=== PATIENT | female | born 1995 | race Caucasian/White ===

== ENCOUNTER → 2017-04-10 | Outpatient (CLI) | payer BC, SELFPAY | PROVIDERS: Visit Provider Nurse Practitioner Obstetrics & Gynecology | DX: Z34.00 Encounter for supervision of normal first pregnancy, unspecified trimester (principal) | CPT/HCPCS: 36415; 84702 ==

== ENCOUNTER → 2017-04-18 | Outpatient (CLI) | payer BC, SELFPAY | PROVIDERS: Visit Provider Nurse Practitioner Obstetrics & Gynecology | DX: O26.841 Uterine size-date discrepancy, first trimester (principal) | CPT/HCPCS: 76817 ==

== ENCOUNTER → 2017-05-10 15:49 | Outpatient (CLI) | payer OTHER, SELFPAY ==
[2017-05-10 16:28] LABS: Basophils % 0.3 % (0.1-2.0); Eosinophils # 0.1 K/mm3 (0.0-0.4); Eosinophils % 1.1 % (0.1-12.0); Hematocrit 38.8 % (37.0-47.0); Lymphocytes # 1.6 K/mm3 (0.7-4.5); Lymphocytes % 19.5 K/mm3 (10-50); Mean Corpuscular HGB Conc 33.4 g/dL (31.8-35.4); Mean Corpuscular Hemoglobin 29.8 pg (27.0-31.2); Mean Corpuscular Volume 89.3 fl (81-99); Mean Platelet Volume 6.6 fl (7.4-10.4); Monocytes # 0.6 K/mm3 (0.1-1.0); Neutrophils # 5.8 K/mm3 (1.8-7.8); Neutrophils % 72.1 % (37.0-80.0); Platelet Count 274 K/mm3 (142-424); Red Blood Count 4.35 M/mm3 (4.20-5.40)
[2017-05-12 17:02] LABS: Hepatitis B Surface Antigen Negative (Negative); Hepatitis C Antibody <0.1 s/co ratio (0.0-0.9); Rapid Plasma Reagin Ab Titer Non Reactive (NonRea<1:1)
== END ==
PROVIDERS: Family Provider Family Medicine; PCP Family Medicine; Visit Provider Nurse Practitioner Obstetrics & Gynecology
DX: Z34.90 Encounter for supervision of normal pregnancy, unspecified, unspecified trimester (principal)
CPT/HCPCS: 36415; 85025; 86592; 86762; 86850; 87340; 87380

== ENCOUNTER → 2017-06-13 10:10 | Outpatient (CLI) | payer OTHER, SELFPAY ==
[2017-06-20 02:07] LABS: AFP Value 30.5 ng/mL (.); DIA MoM 0.72 (.); DIA Value 127.04 pg/mL (.); DSR (Second Trimester) 1 IN 1774 (.); Gest. Age on Collection Date 15.6 WEEKS (.); Insulin Dep Diabetes No (.); Maternal Age At EDD 24.8 YEARS (.); OSBR Risk 1 IN 10000 (.); Results Report (.); hCG MoM 1.26 (.); hCG Value 52262 mIU/mL (.); uE3 MoM 0.57 (.)
[2017-06-21 06:36] LABS: Gestat. Age Based On EDD (.)
== END ==
PROVIDERS: Family Provider Family Medicine; PCP Family Medicine; Visit Provider Nurse Practitioner Obstetrics & Gynecology
DX: Z34.90 Encounter for supervision of normal pregnancy, unspecified, unspecified trimester (principal)
CPT/HCPCS: 36415; 82106

== ENCOUNTER → 2017-07-17 12:57 | Outpatient (CLI) | payer OTHER, SELFPAY ==
--- NOTE | 2017-07-17 12:59 | US_ITS ---
US OB /maternal detail: INDICATION: ITS.REASON: US OB Complete ORDERING PHYSICIAN: Bryan Do MD PATIENT AGE: 22 years TECHNIQUE: ultrasound transabdominal scanning. COMPARISON: No previous relevant studies. FINDINGS: Single viable intrauterine gestation. cephalic position. Placenta: posterior placenta grade . There is average amount fluid. The cervix appears satisfactory. Closed and measuring 3 cm in length. Complete survey performed and was unremarkable on the submitted images as in PACS. No discrete anomalies identified on survey imaging by technologist. Active fetus. Three-vessel cord with satisfactory umbilical cord insertion. 4- chamber heart noted. Survey of brain & ventricles. Face and neck survey unremarkable. Diaphragm and chest views unremarkable. Abdomen: Both kidneys noted and unremarkable. Stomach noted and satisfactory. Spine: Survey of the spine satisfactory with no anomalies identified nor imaged. Both arms and legs noted. Amniotic Fluid: Adequate. Maternal adnexa: No significant findings. Measurements: Average ultrasound age 20w6d. Gestational Age 20w3d. Estimated due date by ultrasound age 0711/28/2017. Estimated weight 373 grams. This is 62nd percentile based on last menstrual period BPD = 21w2d OFD = 21w5d HC = 20w5d AC = 21w0d FL = 20w3d Heart Rate = 152 Cerebellum = 21w5d Humerus = 20w6d HC/AC is 1.15 (1.09-1.26). CI is 77% (70-86%). FL/BPD is 66%. FL/AC is 21%. IMPRESSION: Live IUP in cephalic presentation with an average ultrasound age of 20 weeks and 6 days and an estimated due date of 11/28/2017. No obvious anomalies. Please see above for detail
== END ==
PROVIDERS: Family Provider Family Medicine; PCP Family Medicine; Visit Provider Nurse Practitioner Obstetrics & Gynecology
DX: Z36.0 Encounter for antenatal screening for chromosomal anomalies (principal)
CPT/HCPCS: 76811

== ENCOUNTER → 2017-11-09 17:51 | Outpatient (REF) | payer OTHER, SELFPAY | LOC: LAB 17:51 | PROVIDERS: Visit Provider Nurse Practitioner Obstetrics & Gynecology | DX: Z34.90 Encounter for supervision of normal pregnancy, unspecified, unspecified trimester (principal) | CPT/HCPCS: 86403 ==

== ENCOUNTER 2017-11-28 18:36 | Inpatient (IN) ==
[2017-11-28 19:11] LABS: Microscopic, Urine URINE MICROSCOPIC (MICROSCOPIC)
[2017-11-28 19:14] LABS: Appearance,Urine CLEAR (Clear); Bilirubin,Urine Negative (Negative); Blood, Urine Negative (Negative); Color,Urine YELLOW (Yellow); Glucose,Urine (UA) Negative (Negative); Ketones,Urine Negative (Negative); Leukocyte Esterase,Urine Negative (Negative); Protein,Urine Negative (Negative); Specific Gravity, Urine 1.015 (1.005-1.030); Urobilinogen,Urine 0.2 EU/dl (0.2)
[2017-11-28 19:28] LABS: Amphetamine/Metha Screen,Urine Negative ng/mL (<1000); Barbiturates Screen,Urine Negative ng/mL (<200); Benzodiazepines Screen,Urine Negative ng/mL (<200); Cannabinoid Screen,Urine Negative ng/mL (<50); Cocaine Screen,Urine Negative ng/mL (<300); Methadone Screen,Urine Negative ng/mL (<300); Opiate Screen,Urine Negative ng/mL (<300); Phencyclidine Screen,Urine Negative ng/mL (<25)
[2017-11-28 19:30] LABS: Bacteria,Urine 1+ /lpf; RBC,Urine Occasional #/hpf (0-3); Squamous Epithelial Cell,Urine TNTC #/hpf (0-5)
[2017-11-28 21:51] LABS: Basophils % 0.2 % (0.1-2.0); Eosinophils # 0.1 K/mm3 (0.0-0.4); Eosinophils % 0.4 % (0.1-12.0); Hematocrit 36.5 % (37.0-47.0); Lymphocytes # 2.2 K/mm3 (0.7-4.5); Lymphocytes % 17.8 K/mm3 (10-50); Mean Corpuscular HGB Conc 32.9 g/dL (31.8-35.4); Mean Corpuscular Hemoglobin 27.5 pg (27.0-31.2); Mean Corpuscular Volume 83.5 fl (81-99); Mean Platelet Volume 7.4 fl (7.4-10.4); Monocytes # 0.7 K/mm3 (0.1-1.0); Monocytes % 5.9 % (1.7-9.3); Neutrophils # 9.2 K/mm3 (1.8-7.8); Neutrophils % 75.8 % (37.0-80.0); Platelet Count 266 K/mm3 (142-424); Red Blood Count 4.37 M/mm3 (4.20-5.40); Red Cell Distribution Width 13.5 % (11.5-17.5); White Blood Count 12.1 K/mm3 (4.8-10.8)
--- NOTE | 2017-11-29 08:10 | Progress Note ---
[facility] Anesthesia Checklist - Patient Identification Patient Identification: Arm Band - Structural Data Admitted From: Home Planned Operative Procedure/s: labor epidural Consent for Planned Operative Procedure(s) Verified: Yes Verified Documents: Surgical Consent, History and Physical - NPO Status Verified Time NPO: 00:00 - Additional verifications Anesthesia Reactions: No - Airway Assessment C-Spine Mobility Assessed: Yes TMJ Mobility Assessed: Yes Dentition: Good Dentition - Neurological Assessment Level of Consciousness: Awake, Alert - Anesthesia Plan Anesthesia Risk discussed: Yes Anesthesia Plan: Verified ASA Class: II Anesthesia Type: Epidural [facility] Anesthesia HX I have reviewed the patient's past medical history: Yes Medical History: Reports:: Anxiety Denies:: Depression, Diabetes Mellitus Type 1, Hyperlipidemia, Hypertension, MRSA Other Surgeries: No: Amputation: No Fractures: No *Family Hx:: No significant family history
--- NOTE | 2017-11-29 14:48 | History & Physical Report ---
OB - H&P: HPI Antepartum - History of Present Illness Chief complaint: contractions History of present illness: 22 yo G1 @ 39 6/7 presented last night (39 5/7) with active labor Cervix 2cm and admitted to L&D Spontaneous progress to 4cm by today but stalled at 4cm Pitocin augmentation begun today and AROM with clear fluid Cervix now 8/100/0 NST has been reassuring since admission Patient was uncomfortable after epidural placement, but second epidural placed by anesthesia and currently comfortable [facility] History I have reviewed the patient's past medical history: Yes Medical History: Reports:: Anxiety Denies:: Depression, Diabetes Mellitus Type 1, Hyperlipidemia, Hypertension, MRSA Other Surgeries: No: Amputation: No Fractures: No - *Social History Smoking Status: Smoker, status unknown Alcohol Intake: never Substance Use Type: denies use Occupational Status: employed Housing: house Household Members: spouse - Psychiatric History Pschychiatric History:: Reports:: Anxiety Denies:: Depression *Family Hx:: No significant family history Para: 0 Review of Systems - Review of Systems Review of systems:: pertinent systems reviewed and negative unless documented below - Constitutional Denies chills, Denies fever(s) - Eyes Denies blurry vision, Denies double vision - ENT Denies nosebleed, Denies headache(s) - *Cardiovascular Denies chest pain, Denies shortness of breath - *Respiratory Denies cough, Denies shortness of breath - *Gastrointestinal Denies abdominal pain, Denies nausea, Denies vomiting - *Genitourinary Denies abnormal vaginal bleeding (+ contractions), Denies painful urination - *Musculoskeletal Reports back pain - Integumentary/Breasts Denies rash - *Neurologic Denies headache(s), Denies tingling/numbness/burning sensations - Psychiatric Denies anxiety, Denies depression - Hematologic/Lymphatic Denies easy bleeding, Denies easy bruising Meds Home Medications Medication Instructions Recorded Confirmed Type lansoprazole 15 mg capsule,delayed 15 mg PO DAILY cap 11/27/17 11/28/17 History release Vit Calc,Iron,Folic [Kpn] 1 tab PO DAILY 11/28/17 11/29/17 History Allergies Allergy/AdvReac Type Severity Reaction Status Date / Time No Known Allergies Allergy Verified 11/27/17 15:09 OB - H&P: Exam - Physical Exam Vital signs: Temp Pulse Resp BP Pulse Ox 98.0 F 84 18 132/80 98 11/28/17 19:45 11/28/17 19:45 11/28/17 19:45 11/28/17 19:45 11/28/17 19:45 - Constitutional no acute distress - Routine HEENT Exam Eye: Absent: conjunctival icterus, scleral injection ENT: Present: mucous membranes moist - Routine Respiratory Exam Absent: accessory muscle use, respiratory distress - Routine Cardiovascular Exam Present: RRR. Absent: tachycardia - Routine Abdominal Exam Present: soft. Absent: tenderness, distended - Routine Exam Perineal: Absent: erythema, induration, tenderness - Routine Extremities Exam Absent: edema - Routine Skin Exam Absent: rash - Routine Neurological Exam Present: alert, oriented X3. Absent: altered mental status - Routine Psychiatric Exam Present: normal affect. Absent: depressed, anxious - Detailed Labor and Delivery Exam Dilation (cm): 8 Effacement (%): 80 Cervix position: mid station: 0 Consistency: soft Membranes: ruptured (AROM clear fluid) Amniotic fluid: clear monitor accelerations: Present monitor decelerations: None superintendent container terminal variability: Moderate (11-25) Contraction frequency (min): 3 Tachysystole: No OB - Results - Labs Labs: Short CBC 11/28/17 Range/Units 20:50 WBC 12.1 H (4.8-10.8) K/mm3 Hgb 12.0 L (12.2-16.2) g/dL Hct 36.5 L (37.0-47.0) % Plt Count 266 (142-424) K/mm3 Urine 11/28/17 Range/Units 19:00 Urine Color Yellow (Yellow) Urine Appearance Clear (Clear) Urine pH 7.0 (5.0-8.5) Ur Specific [place] 1.015 (1.005-1.030) Urine Protein Negative (Negative) Urine Glucose (UA) Negative (Negative) OB - A/P Antepartum (1) with 39 completed weeks gestation Current visit: Yes Status: Acute (2) Active labor at term Current visit: Yes Status: Acute (3) Anemia affecting in third trimester Current visit: Yes Status: Acute - Additional Plan Additional Information:: Admitted to L&D with active labor on 11/28/17 Stalled at 4cm and pitocin augmentation initiated Progressing normally now Comfortable with epidural Continuous monitoring Anticipate Repeat H/H
--- NOTE | 2017-11-29 17:09 | Progress Note ---
Delivery date: 11/29/17 Procedure: Spontaneous vaginal delivery of liveborn male infant over intact perineum. No nuchal cord or shoulder dystocia noted at delivery. delivered in controlled fashion without complication and placed skin-to- skin immediately while labor nurses assessed infant status. Placenta spontaneously delivered and intact. No labial or cervical lacerations 2nd degree perineal laceration repaired with 2-0 vicryl in layers. EBL: 400cc All counts correct Dispo: Mom/baby stable to recovery. Delivery augmentation: pitocin Delivery monitor: external FHT, external uterine Route of delivery: Episiotomy description: None Laceration description: Perineal - 2nd Degree Delivery repair: vicryl Estimated blood loss (mL): 400 Anesthesia type: Epidural Disposition: floor
[2017-11-30 09:24] LABS: Hematocrit 28.8 % (37.0-47.0); Hemoglobin 9.3 g/dL (12.2-16.2)
--- NOTE | 2017-11-30 23:51 | Progress Note ---
Internal Medicine - PN: Subj *Date: 11/30/17 *Time: 11:49 Interval history: PPD #1 No complaints Tolerating po, ambulating and voiding without difficulty Lochia less than menses Exam Vital signs and Labs for Last 24 Hours: Temp Pulse Resp BP Pulse Ox 98.0 F 84 18 132/80 98 11/28/17 19:45 11/28/17 19:45 11/28/17 19:45 11/28/17 19:45 11/28/17 19:45 Laboratory Results - last 24 hr 11/30/17 09:15: Hgb 9.3 L, Hct 28.8 L I & O for Last 24 hours: Intake & Output 11/28/17 11/29/17 11/30/17 12/01/17 11:59 11:59 11:59 11:59 Weight 201 lb - Constitutional no acute distress - *Routine Respiratory Exam Absent: respiratory distress - *Routine Cardiovascular Exam Absent: tachycardia - *Routine Abdominal Exam Present: soft. Absent: tenderness, distended - *Routine Extremities Exam Absent: edema - *Routine Skin Exam Absent: rash - *Routine Neurological Exam Present: alert, oriented X3 - Routine Psychiatric Exam Absent: depressed, anxious Assessment and Plan (1) with 39 completed weeks gestation Current visit: Yes Status: Acute Category: Medical Code(s): Z3A.39 - 39 weeks gestation of (2) Active labor at term Current visit: Yes Status: Acute Category: Medical (3) Anemia affecting in third trimester Current visit: Yes Status: Acute Category: Medical Code(s): O99.013 - Anemia complicating , third trimester (4) Normal vaginal delivery Current visit: Yes Status: Acute Category: Medical Code(s): O80 - Encounter for full-term uncomplicated delivery - Assessment and plan all Dx Assessment and Plan for all problems:: Routine care Anticipate
--- NOTE | 2017-12-01 07:51 | Discharge Summary ---
DS: Providers Date of admission: 11/28/17 20:04 Primary care physician: Davy Sorensen MD Attending physician on admission: Jacque Reed Attending physician on discharge: Jacque Reed Anticipated date of discharge: 12/01/17 DS: Diagnosis - Discharge Diagnosis (1) with 39 completed weeks gestation Status: Acute (2) Active labor at term Status: Acute (3) Anemia affecting in third trimester Status: Acute (4) Normal vaginal delivery Status: Acute DS: Medications - Discharge Medications Prescriptions: No Action lansoprazole 15 mg capsule,delayed release 15 mg PO DAILY cap Vit Calc,Iron,Folic [Kpn] 1 tab PO DAILY OB - DS: Summary Hospital course: Ms. Eckert is a 22 year old admitted with SROM with normal course Ambulating, tolerating regular diet and voiding without difficulty Discharged home on PPD #2 - Peripartum Data Delivery method: spontaneous vaginal delivery - Status at Discharge Functional status at discharge: independent ambulation Overall status at discharge: patient is progressing back to baseline - Time Spent with Patient Total time spent providing and/or coordinating discharge services: Less than 30 minutes Exam Vital signs and Labs for Last 24 Hours: Temp Pulse Resp BP Pulse Ox 98.0 F 84 18 132/80 98 11/28/17 19:45 11/28/17 19:45 11/28/17 19:45 11/28/17 19:45 11/28/17 19:45 Laboratory Results - last 24 hr 11/30/17 09:15: Hgb 9.3 L, Hct 28.8 L I & O for Last 24 hours: Intake & Output 11/28/17 11/29/17 11/30/17 12/01/17 11:59 11:59 11:59 11:59 Weight 201 lb - Constitutional no acute distress - *Routine Respiratory Exam Absent: respiratory distress - *Routine Cardiovascular Exam Absent: tachycardia - *Routine Abdominal Exam Present: soft. Absent: tenderness - *Routine Skin Exam Absent: rash - *Routine Neurological Exam Present: alert, oriented X3 - Routine Psychiatric Exam Present: normal affect. Absent: depressed, anxious Results Labs on day of discharge: Labs from last 24 hours 11/30/17 09:15 Hgb 9.3 L Hct 28.8 L Discharge Plan - Patient Discharge Instructions ACTIVITY: Continue current activity DIET: regular diet - Follow up Plan Disposition: Home, Self-[facility] Medications: Home Medications Medication Instructions Recorded Confirmed Type lansoprazole 15 mg capsule,delayed 15 mg PO DAILY cap 11/27/17 11/28/17 History release Vit Calc,Iron,Folic [Kpn] 1 tab PO DAILY 11/28/17 11/29/17 History Prescriptions/Medication Reconciliation: New Ibuprofen [Motrin 400mg tablet] 800 mg PO Q6HP PRN tablet PRN Reason: Mild To Moderate Pain Continue lansoprazole 15 mg capsule,delayed release 15 mg PO DAILY cap Vit Calc,Iron,Folic [Kpn] 1 tab PO DAILY
== END 2017-12-01 20:00 | disposition home or self-care (01) ==
LOC: OBOUT 18:36 → OB 18:39
PROVIDERS: ADMIT Obstetrics & Gynecology; ATTEND Nurse Practitioner Obstetrics & Gynecology

== ENCOUNTER 2020-12-16 18:06 | Emergency (ER) | payer BC, SELFPAY ==
[2020-12-16 20:01] VITALS: BP 127/86; PULSE 86; RESP 18; TEMP 36.6; O2SAT 100; BMI 20.3
--- NOTE | 2020-12-16 20:11 | HMH.EDUTC ---
[facility] [place] Clinical Impression: Left flank pain UTI (urinary tract infection) Qualifiers: Urinary tract infection type: site unspecified Hematuria presence: with hematuria Qualified Code(s): N39.0 - Urinary tract infection, site not specified Low back pain Qualifiers: Chronicity: acute Back pain laterality: right Sciatica presence: without sciatica Qualified Code(s): M54.5 - Low back pain Disposition: Home, Self-Care Condition on Discharge: Good Instructions: Urinary Tract Infection, DI for Urinary Tract Infection (UTI) Additional Instructions: Drink plenty of fluids. Take tylenol or ibuprofen for pain or fever. Take the medications as directed. Follow up with your regular doctor. GO TO THE ER FOR ANY WORSENING SYMPTOMS The pyridium will make your urine turn orange, this is an expected side effect. It will stain your clothes if it comes into contact with them. Prescriptions: Ondansetron [Zofran 4mg ODT] 4 mg PO Q8HP PRN #12 tab.rapdis PRN Reason: Nausea Transmission Status: Received by [facility] Sulfamethoxazole/Trimethoprim [Bactrim DS tablet] 1 each PO BID 7 Days #14 tab Transmission Status: Received by [facility] Phenazopyridine HCl [Pyridium 200mg Tablet] 200 pow PO TID #6 tab Transmission Status: Received by [facility] Referrals: Isai Reilly MD [Primary Care Provider] - Time of Disposition: 20:53 Medical Decision Making - Medical Records Medical records reviewed: No: I reviewed the patient's medical records. - Ney Inquiry Pt receiving controlled substance: No Vital Signs: 12/16/20 20:01 12/16/20 20:55 Temperature 97.9 F 98.3 F Temperature Source Oral Pulse Rate 89 Pulse Rate [Left Radial] 86 Respiratory Rate 18 18 Blood Pressure 119/91 H Blood Pressure [Left Arm] 127/86 Blood Pressure Mean [Left Arm] 99 Blood Pressure Source [Left Arm] Automatic Cuff Blood Pressure Position [Left Arm] Sitting 02 Sat by Pulse Oximetry 100 Oxygen Delivery Method Room Air - Lab Data Lab results reviewed: Yes: I reviewed the patient's lab results. Lab Results 12/16/20 20:03: Urine Color Yellow, Urine Appearance Cloudy, Urine pH 6.0, Ur Specific [place] 1.025, Urine Protein Trace, Urine Glucose (UA) Negative, Urine Ketones Small, Urine Blood 3+, Urine Nitrate Positive A, Urine Bilirubin Negative, Urine Urobilinogen 0.2, Ur Leukocyte Esterase 2+ A Orders (Tests/Meds): ED MEDICATIONS Discontinued Medications Generic Name Dose Route Start Last Admin Trade Name Dinorah PRN Reason Stop Dose Admin Ceftriaxone Sodium 1 gm 12/16/20 20:30 12/16/20 20:54 Ceftriaxone 1gm Vial IM 12/16/20 20:31 1 gm ONCE ONE Administration Lidocaine HCl 0 ml 12/16/20 20:30 12/16/20 20:54 Lidocaine 1% 5ml Pf Vial IM 12/16/20 20:31 2.5 ml ONCE ONE Administration [facility] [place] - General Stated complaint: possible uti Time Seen by Provider: 12/16/20 20:11 Mode of Arrival: Ambulatory Source of Information: Patient Limitations: No Limitations Description of Symptoms (Recalled from Triage Doc. by RN): C/O possible UTI. Pain in back on left side below ribs and in groin HEENT Symptoms (Recalled from RN notes): No Resp Symptoms (Recalled from RN notes): No Skin Symptoms (Recalled from RN notes): No MS Symptoms (Recalled from RN notes): No Functional Status (Recalled from RN notes): n/a - History of Present Illness Provider Complaint: She reports that she has had 2 days of low back pain that radiates around to her left flank. She denies any fever/chills. She does have a history of getting UTI's. She also has a history of kidney stones, but it has been around 8 years since she has had one of those. - Related Data Home Medications Medication Instructions Recorded Confirmed etonogestrel 0.12 mg-ethinyl 1 vag ring VAGINAL Q4W 04/20/20 04/20/20 estradiol 0.015 mg/24 hr vaginal ring Previous Rx's Medicati
[2020-12-16 20:39] LABS: Apearance,Urine Cloudy (Clear); Color,Urine Yellow (Yellow); Protein,Urine Trace (Negative); Specific Gravity, Urine 1.025 (1.005-1.030)
[2020-12-16 20:40] LABS: Bilirubin,Urine Negative (Negative); Blood, Urine 3+ (Negative); Glucose,Urine (UA) Negative (Negative); Ketones,Urine SMALL (Negative); UTC Leukocyte Esterase,Urine 2+ (Negative); UTC Nitrate,Urine Positive (Negative); Urobilinogen,Urine 0.2 EU/dl (0.2)
[2020-12-16 20:55] VITALS: BP 119/91; PULSE 89; RESP 18; TEMP 36.8
== END 2020-12-16 20:58 | disposition home or self-care (01) ==
PROVIDERS: Emergency Provider Nurse Practitioner Family; PCP Internal Medicine Adolescent Medicine
DX: N30.00 Acute cystitis without hematuria (principal); Z87.442 Personal history of urinary calculi; F41.8 Other specified anxiety disorders
CPT/HCPCS: 81003; 96372; 99203; G0463

== ENCOUNTER 2020-12-17 17:37 | Emergency (ER) | payer BC, SELFPAY ==
[2020-12-17 17:38] VITALS: BP 137/94; PULSE 119; RESP 17; TEMP 36.9; O2SAT 97; BMI 20.3
--- NOTE | 2020-12-17 17:55 | CT_ITS ---
PROCEDURE INFORMATION: Exam: CT Abdomen And Pelvis Without Contrast Exam date and time: 12/17/2020 5:55 PM Age: 25 years old Clinical indication: Abdominal pain; Patient HX: Left flank pain with nausea x3 days, HX kidney stones TECHNIQUE: Imaging protocol: Computed tomography of the abdomen and pelvis without contrast. Radiation optimization: All CT scans at this facility use at least one of these dose optimization techniques: automated exposure control; mA and/or kV adjustment per patient size (includes targeted exams where dose is matched to clinical indication); or iterative reconstruction. COMPARISON: OBFEMAT US OB /maternal detail 07/17/2017 1:04 PM FINDINGS: Liver: Within normal limits. Gallbladder and bile ducts: Within normal limits. Pancreas: Within normal limits. Spleen: Within normal limits. Adrenal glands: Within normal limits. Kidneys and ureters: Left ureteral stone (5 x 8 mm) in the distal left ureter with mild associated left hydroureteronephrosis. No significant perinephric fat stranding. Stomach and bowel: Within normal limits. Appendix: Appendix is normal. Intraperitoneal space: No free fluid. No pneumoperitoneum. Vasculature: Multiple phleboliths noted in the pelvis. Lymph nodes: No enlarged lymph nodes by CT criteria. Urinary bladder: Within normal limits. Reproductive: Right ovary contains a physiologic follicle. CT appearance of reproductive organs is otherwise unremarkable. 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 No acute osseous abnormality. Soft tissues: Unremarkable. IMPRESSION: 1. Distal left ureteral stone (5 x 8 mm) with mild associated hydroureteronephrosis. 2. 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 Findings can be associated with Klippel-Feil syndrome and/or various symptomatology. Please correlate with patient history.
--- NOTE | 2020-12-17 18:05 | HMH.EDGENADL ---
ED Disposition Clinical Impression: Left ureteral calculus Disposition: Home, Self-Care Condition on Discharge: Good Additional Instructions: Percocet as needed for pain, take Benadryl 25 mg with each dose. Zofran as needed for nausea. Flomax as prescribed. Additional instructions for KIDNEY STONE (URETERAL CALCULUS): See Dr. Shen as soon as possible for further evaluation. Drink plenty of fluids. Strain your urine and save any stones you catch. Return immediately if you develop a fever or have uncontrollable vomiting or uncontrollable pain. Additional instructions for CONTROLLED SUBSTANCES: You have been prescribed a medication that is a controlled substance. Controlled substances include pain medications known as opiates and sedative nerve medications known as benzodiazepines. Tramadol, fioricet, and gabapentin are also controlled substances. Some common opiates include: Codeine (such as Tylenol #3) Hydrocodone (Vicodin, Lortab, Lorcet, [place]) Oxycodone (Percocet, Percodan, Oxycodone, Oxy IR) Some common benzodiazepines include: Diazepam (Valium) Lorazepam (Ativan) Alprazolam (Xanax) Clonazepam (Klonopin) Oxazepam (Serax) All of these controlled substances are highly addictive and frequently abused. Misuse can and frequently does lead to addiction as well as overdose and . Medication should be stored in a locked cabinet or other secure storage unit. Do not store the medication in a motor vehicle. Short term supplies, 3 days or less, are prescribed because of the highly addictive nature of the medication. Any of the controlled substance medication NOT taken should be disposed of properly and NOT SAVED. The recommended method of disposing of unused medications is: Place the medicines in a sealable plastic bag. If the medicine is a solid, crush it or add water to dissolve it. Add something undesirable (cat litter, coffee grounds, etc.) Dispose of sealed bag in household trash Do not flush or pour unused medicines down a sink or drain. Controlled substances should not be shared, given away or sold. Because of the addictive nature and frequent abuse, these medications are sometimes stolen. These medications should be kept in a safe place where they cannot be stolen. Do not keep them in your car or purse. Lost or stolen prescriptions for controlled substances WILL NOT BE REFILLED in this emergency department, regardless of whether a police report was filed. Prescriptions: Oxycodone HCl/Acetaminophen [Percocet 5/325mg tablet] 1 tab PO Q6HP PRN #10 tab PRN Reason: Moderate To Severe Pain Transmission Status: Sent to [facility] Tamsulosin HCl [Flomax 0.4mg capsule] 0.4 mg PO HS #10 cap.er.24h Transmission Status: Pending to [facility] Ondansetron [Zofran 4mg ODT] 4 mg PO TIDP PRN #10 tab.rapdis PRN Reason: Nausea And Vomiting Transmission Status: Pending to [facility] Referrals: Isai Reilly MD [Primary Care Provider] - Thiago Shen MD [Staff Physician] - - Critical Care Critical Care Time: No Attestation: On 12/17/20, the high probability of a clinically significant, sudden or life threatening deterioration of the following system(s) required my full and direct attention, intervention and personal management. The time I documented below is in addition to time spent performing reported procedures but includes the following listed in this critical care notation. Medical Decision Making - Medical Records Medical records reviewed: Yes: I reviewed the patient's medical records. MR Comment: Urgent treatment center visit from yesterday reviewed. - Ney Inquiry Pt receiving controlled substance: Yes Ney was queried for this patient: Yes Risks and benefits of using a controlled substance: were discussed with pt by me Vital Signs: 12/17/20 17:38 Temperature 98.5 F Temperature Source Oral Pulse Rate [Right] 119 H Respiratory Rate 1
[2020-12-17 18:21] LABS: Bilirubin,Urine Negative (Negative); Blood, Urine 2+ (Negative); Glucose,Urine (UA) Negative (Negative); Ketones,Urine TRACE (Negative); Leukocyte Esterase,Urine TRACE (Negative); Nitrate,Urine Negative (Negative); Protein,Urine Negative (Negative); Specific Gravity, Urine >= 1.030 (1.005-1.030); Urine Pregnancy, HCG Qual. Negative (Negative); Urobilinogen,Urine 0.2 EU/dl (0.2)
[2020-12-17 18:22] LABS: Appearance,Urine SL CLOUDY (Clear); Color,Urine YELLOW (Yellow); Microscopic, Urine URINE MICROSCOPIC (MICROSCOPIC)
[2020-12-17 18:30] LABS: Basophils % 0.5 % (0.1-2.0); Eosinophils % 0.6 % (0.1-12.0); Hematocrit 42.4 % (37.0-47.0); Hemoglobin 14.2 g/dL (12.2-16.2); Lymphocytes # 1.4 K/mm3 (0.7-4.5); Lymphocytes % 17.7 % (10-50); Mean Corpuscular HGB Conc 33.4 g/dL (31.8-35.4); Mean Corpuscular Hemoglobin 29.5 pg (27.0-31.2); Mean Corpuscular Volume 88.4 fl (81-99); Monocytes # 0.4 K/mm3 (0.1-1.0); Monocytes % 5.2 % (1.7-9.3); Neutrophils # 5.8 K/mm3 (1.8-7.8); Platelet Count 242 K/mm3 (142-424); Red Cell Distribution Width 12.3 % (11.5-17.5); White Blood Count 7.6 K/mm3 (4.8-10.8)
[2020-12-17 18:31] LABS: Chloride 102 mmol/L (98-107); Sodium 138 mmol/L (136-145)
[2020-12-17 18:32] LABS: Potassium 3.9 mmoL/L (3.5-5.1); Squamous Epithelial Cell,Urine Occasional #/hpf (0-5); Transitional Epi Cells,Urine OCC #/lpf (0-3); WBC,Urine Occasional #/hpf (0-3)
[2020-12-17 18:34] LABS: Alanine Aminotransferase 14 U/L (12-78); Alkaline Phosphatase 59 U/L (38-126); Aspartate Amino Transferase 20 U/L (14-36); Bilirubin,Total 0.4 mg/dl (0.2-1.3); Blood Urea Nitrogen 10 mg/dl (7-17); Creatinine Clearance Estimated 113 mL/min (50-200); Estimated Glomerular Filt Rate 86 ml/min (>60); GFR (African American) 104 ML/MIN (>60)
[2020-12-17 18:35] LABS: Albumin Level 4.4 g/dl (3.5-5.0); Albumin/Globulin Ratio 1.3 (1.1-1.8); Anion Gap 13.9 mEq/L (5-15); Calcium 9.2 mg/dl (8.4-10.2); Carbon Dioxide 26 mmol/L (22.0-30.0); Globulin 3.3 g/dL (1.3-3.2); Glucose 130 mg/dl (74-100); Total Protein,Serum 7.7 g/dl (6.3-8.2)
[2020-12-17 19:30] VITALS: BP 114/75; PULSE 81; O2SAT 99
[2020-12-17 20:00] VITALS: BP 124/78; PULSE 78; O2SAT 97
[2020-12-17 20:30] VITALS: BP 124/78; PULSE 98; RESP 16; TEMP 36.9; O2SAT 97
== END 2020-12-17 20:33 | disposition home or self-care (01) ==
PROVIDERS: Emergency Provider Emergency Medicine; PCP Internal Medicine Adolescent Medicine
DX: N20.1 Calculus of ureter (principal); F41.8 Other specified anxiety disorders; Z87.442 Personal history of urinary calculi
CPT/HCPCS: 74176; 80053; 81001; 81025; 85025; 96375; 99283; J2405

== ENCOUNTER 2020-12-18 13:44 | Day surgery (SDC) | payer BC, SELFPAY ==
[2020-12-18] VITALS (9 sets, daily range): BP systolic 105–140; BP diastolic 62–84; PULSE 67–96; RESP 16–18; TEMP 36.7–36.8; O2SAT 95–99; BMI 20.5
[2020-12-18 13:46] LABS: Coronavirus 19, PCR Not Detected (NotDetected); Influenza A, PCR Not Detected (NotDetected); Influenza B, PCR Not Detected (NotDetected)
--- NOTE | 2020-12-18 17:31 | XR_ITS ---
PROCEDURE: XR KUB CLINICAL INDICATION: STENT PLACEMENT IN OR COMPARISON: CT CT ABDOMEN PELVIS WO CON from 12/17/2020 FINDINGS: Fluoroscopy: 4 minutes seconds. 2 images submitted with C-arm show a left ureteral stent place. IMPRESSION: Status post stone extraction stent placement with C-arm assistance Dictated by: Trevon Ibarra MD 12/21/2020 05:42 Trevon Ibarra MD in OV 12/21/2020 05:42
--- NOTE | 2020-12-18 17:38 | P.PN_ITS ---
[facility] Anesthesia Checklist - Patient Identification Patient Identification: Arm Band, Verbal (Name & ) - Structural Data Admitted From: Home Planned Operative Procedure/s: cysto Consent for Planned Operative Procedure(s) Verified: Yes Verified Documents: History and Physical - NPO Status Verified Time NPO: 08:30 - Chart Verification Results Verified: CBC, BMP - Additional verifications Patient : No Anesthesia Reactions: No Hx Blood Transfusions: No Blood Transfusion Reaction: No Cephalosporin Allergy: No Previous Colonoscopy: No - Cardiovascular Assessment Heart Sounds: S1 & S2 Pulse Strength: Baseline Pulse Rhythm: Regular Peripheral Edema: No - Airway Assessment C-Spine Mobility Assessed: Yes TMJ Mobility Assessed: Yes Dentition: Good Dentition - Neurological Assessment Level of Consciousness: Awake, Alert, Appropriate Hx Seizures: No Numbness or tingling in extremities: No - Anesthesia Plan Anesthesia Risk discussed: Yes Anesthesia Plan: Verified ASA Class: II Anesthesia Type: General [facility] History I have reviewed the patient's past medical history: Yes Medical History: Reports:: Anxiety, Depression, Kidney Stones Denies:: Cancer, Diabetes Mellitus Type 1, Diabetes Mellitus Type 2, Hyperlipidemia, Hypertension, Internal Pacemaker, MRSA, Seizures *Have you ever received a pneumonia vaccine?: No *Have you received a flu vaccine this season?: No Other Medical History: Denies: Blood Transfusion Reaction Anesthesia experience/problems:: none Other Surgeries: Yes: No Previous Surgery. 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
--- NOTE | 2020-12-18 17:39 | HMH.ANESI ---
[facility] Anesthesia Record Part I Intake, IV Amount: 800 Estimated blood loss (mL): 0 Urine output (mL): 0 Blood Products used (#): none Blood Pressure: 115/62 SaO2: 99 Pulse Rate: 92 Respiratory Rate: 18 Temperature: 98.0 F Patient is:: Awake, Stable Stable to PACU at:: 14:34
--- NOTE | 2020-12-18 17:58 | HMH.OPNOTE ---
Date of procedure: 12/18/20 Pre-op Diagnosis:: Left ureteral stone with obstruction Post-op Diagnosis:: Impacted 8 x 5 mm left distal ureteral stone with obstruction Procedure performed:: Left ureteroscopy, laser lithotripsy, stone extraction and left stent placement Surgeon:: Thiago Shen MD [employer] CHIEF INSPECTOR:: Other (dalia) Anesthesia: LMA Estimated blood loss (mL): 0 Clinical Note:: 25-year-old white female with recent left renal colic noted to have an 8 x 5 mm stone in the distal ureter with moderate hydroureteronephrosis. Operative findings:: Patient with impacted 8 x 5 mm stone. We were able to fragment the stone into small pieces and remove the largest ones and stent placed. Operative note:: Patient taken to the operating room after informed consent was obtained. Was placed on the operating room table in the supine position and general anesthesia administered. Preoperative antibiotics and sequential compression devices were placed. She was then placed into the dorsal lithotomy position and prepped and draped in the standard surgical fashion. 22 F cystoscope passed into the urethra and the bladder examined in a systematic fashion. There is no abnormalities noted. The ureteral orifices in their normal anatomic position and clear efflux of urine was noted from each orifice. A 0.035 guidewire was passed into the left ureteral orifice and up to the level of the stone but the wire would not pass by the stone. The wire was removed and open-ended 5 Burkinan ureteral catheter was passed into the left ureteral orifice and up close to the stone in the sensor wire was replaced and still unable to pass the wire by the stone. I then tried a 0.035 zip wire without success and then a 0.035 angled zip wire and this was able to be passed by the stone and into the left renal pelvis under fluoroscopy. The 5 Burkinan ureteral catheter was still unable to be passed by the stone so the ureteral catheter was removed and the cystoscope was removed and our semirigid ureteroscope was passed into the left ureter but there was stenosis noted about the centimeter upwards so the ureteroscope was removed and the 5 x 14 mm UroMax balloon dilator was passed over the guidewire and the distal ureter dilated to 12 anna for 2 minutes. The balloon then deflated and removed. The semirigid ureteroscope was then repassed and it passed up to the level of the stone where there was noted to be an impaction there where it was lodged against the left lateral wall. A 200 nm laser fiber was passed through the ureteroscope and the stone was fragmented into smaller pieces. It came off of the wall and there was some raggedy edges noted there where it was impacted. The laser fiber was removed and our 2.4 Burkinan stone basket was passed through the scope and the larger fragments were removed. We then removed the ureteroscope and the cystoscope was replaced and backloaded over the wire and a 4.8 x 24 Burkinan stent was passed but it was too short so it was removed and a 4.8 x 26 Burkinan stent was placed with a good curl noted proximally and distally. The scope then removed after the bladder was drained. The string was left on for later removal. Urojet placed into the urethra. Patient tolerated procedure well no complications. Condition: stable Disposition: PACU Specimens:: Stone fragments were not sent Complications:: None
--- NOTE | 2020-12-18 18:14 | SUR.PHASEI ---
notified Dr Shen via phone at 0936 that the pt was nauseous and that the Tordol did not help with pain. Per Md order pt zofran 4mg IV x 1 and morphine 2 mg iv x 1. no further orders. pt meds administered with favorable results.
--- NOTE | 2020-12-18 20:08 | SUR.PHASEII ---
184 new orders received from Dr Shen via circulating RN e stephanie morphine 2 mg iv q1h prn pain give oxycodone 5mg po now
--- NOTE | 2020-12-20 11:09 | HMH.ANESII ---
[facility] Anesthesia Record Part II Discharge Time: 17:44 Destination: Surgical Day Care (OP Surgery) PACU nurse assessment reviewed?: Yes Patient Condition:: Good Anesthesia Complications:: None Swallowing reflex intact?: Yes Cyanosis?: No Blood Pressure: 120/63 Pulse Rate: 83 Temperature: 98.1 F Mental Status: Alert & Oriented Pain level:: 3 Nausea and/or vomitting:: None Intake, IV Amount: 50
[2020-12-20 11:10] VITALS: BP 120/63; PULSE 83; TEMP 36.7
== END 2020-12-18 20:00 | disposition home or self-care (01) ==
LOC: LAB 13:58 → SDC 14:00
PROVIDERS: PCP Internal Medicine Adolescent Medicine; Visit Provider Urology
PROC: (CPT 52352; principal; 2020-12-18 16:00)
DX: N13.2 Hydronephrosis with renal and ureteral calculous obstruction (principal); F41.9 Anxiety disorder, unspecified; F32.9 Major depressive disorder, single episode, unspecified; Z79.3 Long term (current) use of hormonal contraceptives
CPT/HCPCS: 52353; 52352; 74018; 76000; 96374; C1769; C2617; J2405; U0003

== ENCOUNTER 2020-12-19 20:12 | Emergency (ER) | payer BC, SELFPAY ==
[2020-12-19 20:30] VITALS: BP 135/67; PULSE 89; RESP 16; O2SAT 98
[2020-12-19 20:31] VITALS: BP 137/77; PULSE 104; RESP 16; TEMP 36.7; O2SAT 97; BMI 20.5
--- NOTE | 2020-12-19 20:31 | CT_ITS ---
PROCEDURE INFORMATION: Exam: CT Abdomen And Pelvis Without Contrast Exam date and time: 12/19/2020 8:31 PM Age: 25 years old Clinical indication: Abdominal pain; Localized; Left lower quadrant (llq); Prior surgery; Surgery date: Post-operative (0-2 days); Surgery type: Left ureteral stone extraction and stent placed yesterday; Patient HX: Pain left low quad and difficulty urinating post stone extraction yesterday; Additional info: Flank pain TECHNIQUE: Imaging protocol: Computed tomography of the abdomen and pelvis without contrast. Radiation optimization: All CT scans at this facility use at least one of these dose optimization techniques: automated exposure control; mA and/or kV adjustment per patient size (includes targeted exams where dose is matched to clinical indication); or iterative reconstruction. COMPARISON: CT ABDOMEN PELVIS WO CON 12/17/2020 6:56 PM FINDINGS: Lungs: Lung bases are clear. Liver: There is enlargement of the liver, measuring 17 cm. The liver is otherwise unremarkable. Gallbladder and bile ducts: Normal. No calcified stones. No ductal dilation. Pancreas: Normal. No ductal dilation. Spleen: Normal. No splenomegaly. Adrenal glands: Normal. No mass. Kidneys and ureters: Removal of the previously identified distal left ureteral stone. Placement of a left ureteral stent. There is a left ureteral stent with its coiled ends appropriately positioned in the left collecting system and bladder. Mild residual left hydroureteronephrosis. The right kidney is normal. The right ureter is normal. Stomach and bowel: No bowel obstruction or significant bowel wall thickening. There is excessive colonic stool content. Appendix: A normal appendix is identified. Intraperitoneal space: No left perinephric fluid collections or free fluid. Vasculature: Unremarkable. No abdominal aortic aneurysm. Lymph nodes: Unremarkable. No enlarged lymph nodes. Urinary bladder: The bladder is decompressed. There is a small amount of intraluminal bladder gas consistent with instrumentation. Reproductive: Stable physiologic follicle in the right ovary. No follow-up is recommended. The reproductive organs are otherwise unremarkable. Bones/joints: Congenital fusion of T10-T11. No acute skeletal abnormality or aggressive osseous lesion. Soft tissues: Unremarkable. IMPRESSION: Interval removal of the previously identified distal left ureteral stone with placement of a double-J stent which appears in place. No definitive complications are appreciated at this time. There is however mild residual left hydroureteronephrosis.
[2020-12-19 20:45] VITALS: BP 117/63; PULSE 87; RESP 16; O2SAT 98
[2020-12-19 20:52] LABS: Microscopic, Urine URINE MICROSCOPIC (MICROSCOPIC)
[2020-12-19 20:55] LABS: Basophils % 0.2 % (0.1-2.0); Eosinophils # 0.1 K/mm3 (0.0-0.4); Eosinophils % 0.7 % (0.1-12.0); Hematocrit 41.4 % (37.0-47.0); Hemoglobin 13.5 g/dL (12.2-16.2); Lymphocytes # 1.1 K/mm3 (0.7-4.5); Lymphocytes % 14.5 % (10-50); Mean Corpuscular HGB Conc 32.6 g/dL (31.8-35.4); Mean Corpuscular Hemoglobin 30.2 pg (27.0-31.2); Mean Corpuscular Volume 92.5 fl (81-99); Mean Platelet Volume 8.1 fl (7.4-10.4); Monocytes # 0.4 K/mm3 (0.1-1.0); Monocytes % 4.9 % (1.7-9.3); Neutrophils # 6.2 K/mm3 (1.8-7.8); Neutrophils % 79.7 % (37.0-80.0); Platelet Count 245 K/mm3 (142-424); Red Blood Count 4.47 M/mm3 (4.20-5.40); Red Cell Distribution Width 12.1 % (11.5-17.5); White Blood Count 7.8 K/mm3 (4.8-10.8)
[2020-12-19 20:56] LABS: Appearance,Urine CLEAR (Clear); Blood, Urine 3+ (Negative); Color,Urine YELLOW (Yellow); Glucose,Urine (UA) TRACE (Negative); Ketones,Urine TRACE (Negative); Leukocyte Esterase,Urine 2+ (Negative); Nitrate,Urine POSITIVE (Negative); PH,Urine 6.5 (5.0-8.5); Protein,Urine 3+ (Negative); Specific Gravity, Urine 1.025 (1.005-1.030)
--- NOTE | 2020-12-19 20:57 | HMH.EDGENADL ---
ED Disposition Clinical Impression: Renal colic on left side Disposition: Home, Self-Care Condition on Discharge: Good Additional Instructions: Continue medications for pain as directed. Follow-up with urologist as scheduled on Monday. Plenty of fluids on daily basis. Prescriptions: Ketorolac Tromethamine [Toradol 10mg tablet] 10 mg PO Q6HP PRN 4 Days #12 tab MDD 40mg/day PRN Reason: Mild Pain,Fever,Headache Transmission Status: Received by [facility] #[id number] Tizanidine HCl [Zanaflex 4mg tab] 4 mg PO TID PRN 4 Days #12 tab PRN Reason: Breakthru Severe Pain Transmission Status: Received by [facility] #[id number] Referrals: Isai Reilly MD [Primary Care Provider] - - Critical Care Critical Care Time: No Attestation: On 12/19/20, the high probability of a clinically significant, sudden or life threatening deterioration of the following system(s) required my full and direct attention, intervention and personal management. The time I documented below is in addition to time spent performing reported procedures but includes the following listed in this critical care notation. Medical Decision Making - Medical Records MR Comment: Patient received 1 mg of Dilaudid for pain control. CT scan of the abdomen pelvis stone protocol did not show any complication related to the stent or any stones. Patient has already prescriptions of hydrocodone and oxycodone.. - Ney Inquiry Pt receiving controlled substance: No Ney was queried for this patient: No Reason not queried -: Emergent pt cond-no time Vital Signs: 12/19/20 20:30 12/19/20 20:31 12/19/20 20:45 Temperature 98.1 F Temperature Source Oral Pulse Rate 89 87 Pulse Rate [Right Brachial] 104 H Respiratory Rate 16 16 16 Blood Pressure 135/67 117/63 Blood Pressure [Right Arm] 137/77 Blood Pressure Mean [Right Arm] 97 Blood Pressure Source Automatic Cuff Automatic Cuff Blood Pressure Source [Right Arm] Automatic Cuff Blood Pressure Position Sitting Sitting Blood Pressure Position [Right Arm] Sitting 02 Sat by Pulse Oximetry 98 97 98 Oxygen Delivery Method Room Air Room Air 12/19/20 21:40 12/19/20 22:19 Temperature 98.1 F Temperature Source Pulse Rate 77 72 Pulse Rate [Right Brachial] Respiratory Rate 16 14 Blood Pressure 100/52 L 118/62 Blood Pressure [Right Arm] Blood Pressure Mean [Right Arm] Blood Pressure Source Automatic Cuff Blood Pressure Source [Right Arm] Blood Pressure Position Sitting Blood Pressure Position [Right Arm] 02 Sat by Pulse Oximetry 99 Oxygen Delivery Method Room Air Room Air - Lab Data Lab Results 12/19/20 20:40: Urine Color Yellow, Urine Appearance Clear, Urine pH 6.5, Ur Specific [place] 1.025, Urine Protein 3+, Urine Glucose (UA) Trace, Urine Ketones Trace, Urine Blood 3+, Urine Nitrate Positive, Urine Bilirubin Negative, Urine Urobilinogen 4.0, Ur Leukocyte Esterase 2+ A, Urine RBC Tntc, Urine WBC Tntc, Ur Squamous Epith Cells None, Urine Bacteria 2+ 12/19/20 20:40: WBC 7.8, RBC 4.47, Hgb 13.5, Hct 41.4, MCV 92.5, MCH 30.2, MCHC 32.6, RDW 12.1, Plt Count 245, MPV 8.1, Neut % (Auto) 79.7, Lymph % (Auto) 14.5, [place] % (Auto) 4.9, Eos % (Auto) 0.7, Baso % (Auto) 0.2, Neut # (Auto) 6.2, Lymph # (Auto) 1.1, [place] # (Auto) 0.4, Eos # (Auto) 0.1, Baso # (Auto) 0.0 12/19/20 20:40: Sodium 141, Potassium 3.7, Chloride 105, Carbon Dioxide 27, Anion Gap 12.7, BUN 9, Creatinine 1.00 D, Estimated Creat Clear 91, Estimated GFR 67, Est GFR ( Amer) 80 D, Glucose 132 H, Calcium 8.6, Total Bilirubin 0.2, AST 19, ALT 13, Alkaline Phosphatase 54, Total Protein 7.1, Albumin 4.0, Globulin 3.1, Albumin/Globulin Ratio 1.3 Result diagrams: 12/19/20 20:40 12/19/20 20:40 Orders (Tests/Meds): ED MEDICATIONS Discontinued Medications Generic Name Dose Route Start Last Admin Trade Name Freq PRN Reason Stop Dose Admin Baclofen 10 mg 12/20/20 21:43 Baclofen 10mg Tablet
[2020-12-19 20:58] LABS: Bilirubin,Urine Negative (Negative)
[2020-12-19 21:09] LABS: Bacteria,Urine 2+ /lpf; Chloride 105 mmol/L (98-107); RBC,Urine TNTC #/hpf (0-3); WBC,Urine TNTC #/hpf (0-3)
[2020-12-19 21:10] LABS: Potassium 3.7 mmoL/L (3.5-5.1); Sodium 141 mmol/L (136-145)
[2020-12-19 21:12] LABS: Alanine Aminotransferase 13 U/L (12-78); Albumin/Globulin Ratio 1.3 (1.1-1.8); Alkaline Phosphatase 54 U/L (38-126); Anion Gap 12.7 mEq/L (5-15); Aspartate Amino Transferase 19 U/L (14-36); Bilirubin,Total 0.2 mg/dl (0.2-1.3); Blood Urea Nitrogen 9 mg/dl (7-17); Calcium 8.6 mg/dl (8.4-10.2); Carbon Dioxide 27 mmol/L (22.0-30.0); Creatinine Clearance Estimated 91 mL/min (50-200); Estimated Glomerular Filt Rate 67 ml/min (>60); GFR (African American) 80 ML/MIN (>60); Globulin 3.1 g/dL (1.3-3.2); Glucose 132 mg/dl (74-100); Total Protein,Serum 7.1 g/dl (6.3-8.2)
[2020-12-19 21:40] VITALS: BP 100/52; PULSE 77; RESP 16; O2SAT 99
[2020-12-19 22:19] VITALS: BP 118/62; PULSE 72; RESP 14; TEMP 36.7; O2SAT 98
== END 2020-12-19 22:21 | disposition home or self-care (01) ==
PROVIDERS: Emergency Provider Internal Medicine; PCP Internal Medicine Adolescent Medicine
DX: N23 Unspecified renal colic (principal); Z87.442 Personal history of urinary calculi; F41.8 Other specified anxiety disorders
CPT/HCPCS: 74176; 80053; 81001; 85025; 87086; 96365; 96375; 99283

== ENCOUNTER → 2021-03-08 10:44 | Outpatient (CLI) | payer BC, SELFPAY ==
[2021-03-08 12:12] LABS: HCG,Quantitative 1683 mIU/ml (0-5.42)
== END ==
PROVIDERS: Visit Provider Nurse Practitioner Obstetrics & Gynecology
DX: N92.6 Irregular menstruation, unspecified (principal)
CPT/HCPCS: 36415; 84702

== ENCOUNTER 2021-03-11 12:32 | Emergency (ER) | payer BC, SELFPAY ==
[2021-03-11 13:58] VITALS: BP 117/72; PULSE 86; RESP 16; TEMP 36.9; O2SAT 100; BMI 20.6
[2021-03-11 13:58] LABS: UTC Strep Screen (Rapid) Positive (Negative)
--- NOTE | 2021-03-11 14:34 | HMH.EDUTC ---
[facility] [place] Impression: St[place] Disposition: Home, Self-Care Condition on Discharge: Good Instructions: Strep Throat, DI for Strep Throat Additional Instructions: Drink plenty of fluids. Take tylenol or ibuprofen for pain or fever. Take the medications as directed. Follow up with your regular doctor. GO TO THE ER FOR ANY WORSENING SYMPTOMS Throw your tooth brush away and get a new one. Prescriptions: Azithromycin [Z-Zacarias 250mg Tab*] 250 mg PO UD DOSE PK #6 tab Transmission Status: Received by [facility] Referrals: Isai Reilly MD [Primary Care Provider] - Time of Disposition: 14:35 Medical Decision Making - Medical Records Medical records reviewed: No: I reviewed the patient's medical records. - Ney Inquiry Pt receiving controlled substance: No Vital Signs: 03/11/21 13:58 03/11/21 14:38 Temperature 98.5 F 98.5 F Temperature Source Oral Pulse Rate 86 Pulse Rate [Left] 86 Respiratory Rate 16 16 Blood Pressure 117/72 Blood Pressure [Right Arm] 117/72 Blood Pressure Mean [Right Arm] 87 02 Sat by Pulse Oximetry 100 - Lab Data Lab results reviewed: Yes: I reviewed the patient's lab results. Lab Results 03/11/21 13:56: Strep Scn Rapid Clinic Positive [place] [facility] [place] - General Stated complaint: possible strep Time Seen by Provider: 03/11/21 14:00 Mode of Arrival: Ambulatory Source of Information: Patient Limitations: No Limitations Description of Symptoms (Recalled from Triage Doc. by RN): PT C/O SORE THROAT AND DELGADILLO. HEENT Symptoms (Recalled from RN notes): Yes (SORE THROAT AND DELGADILLO) Resp Symptoms (Recalled from RN notes): No Skin Symptoms (Recalled from RN notes): No MS Symptoms (Recalled from RN notes): No Functional Status (Recalled from RN notes): NA - History of Present Illness Provider Complaint: She c/o sore throat for the past 2 days. - Related Data Home Medications Medication Instructions Recorded Confirmed Etonogestrel/Ethinyl Estradiol 1 vag ring VAGINAL Q4W 12/18/20 12/21/20 [Nuvaring Vaginal Ring] Phenazopyridine HCl [Pyridium 200 pow PO TID 12/18/20 12/21/20 200mg Tablet] Sulfamethoxazole/Trimethoprim 1 each PO BID 12/18/20 12/21/20 [Bactrim DS tablet] Tamsulosin HCl [Flomax 0.4mg 0.4 mg PO HS 12/18/20 12/21/20 capsule] Cyclobenzaprine HCl 10 mg * BID PRN 12/19/20 12/21/20 [Cyclobenzaprine 10mg Tab*] Promethazine HCl 25 mg PO NEEDED PRN 12/19/20 12/21/20 Previous Rx's Medication Instructions Recorded Ondansetron [Zofran 4mg ODT] 4 mg PO Q8HP PRN #12 tab.rapdis 12/16/20 Oxycodone HCl/Acetaminophen 1 tab PO Q6HP PRN #10 tab 12/17/20 [Percocet 5/325mg tablet] Ketorolac Tromethamine [Toradol 10 mg PO Q6HP PRN 4 Days #12 tab 12/19/20 10mg tablet] MDD 40mg/day Tizanidine HCl [Zanaflex 4mg 4 mg PO TID PRN 4 Days #12 tab 12/19/20 tab] Azithromycin [Z-Zacarias 250mg Tab*] 250 mg PO UD DOSE PK #6 tab 03/11/21 Allergies Allergy/AdvReac Type Severity Reaction Status Date / Time No Known Allergies Allergy Verified 12/21/20 13:12 - Worker's Comp Is this a Worker's Comp case?: No [facility] History - Hepatitis A Screen Drug use history?: No High risk sexual behaviors?: No History of sexually transmitted infection?: No Currently employed?: No Childcare worker?: No Do you have indoor plumbing?: Yes Do you have electricity?: Yes Attestation statement:: This patient has been screened for Hepatitis A risk factors. I have reviewed the patient's past medical history: Yes Medical History: Reports:: Anxiety, Depression, Kidney Stones Denies:: Cancer, Diabetes Mellitus Type 1, Diabetes Mellitus Type 2, Hyperlipidemia, Hypertension, Internal Pacemaker, MRSA, Seizures Other Medical History: Denies: Blood Transfusion Reaction Other Surgeries: Yes: No Previous Surgery. No: , Pacemaker Amputation: No Fractures: No - Social History Smoking Status: Never smoker Al
[2021-03-11 14:38] VITALS: BP 117/72; PULSE 86; RESP 16; TEMP 36.9
== END 2021-03-11 14:39 | disposition home or self-care (01) ==
PROVIDERS: Emergency Provider Nurse Practitioner Family; PCP Internal Medicine Adolescent Medicine
DX: J02.0 Streptococcal pharyngitis (principal); F41.8 Other specified anxiety disorders; Z87.442 Personal history of urinary calculi
CPT/HCPCS: 87880; 99202; G0463

== ENCOUNTER → 2021-03-12 10:00 | Outpatient (CLI) | payer BC, SELFPAY ==
[2021-03-12 11:28] LABS: HCG,Quantitative 7959 mIU/ml (0-5.42)
== END ==
PROVIDERS: Visit Provider Nurse Practitioner Obstetrics & Gynecology
DX: N92.6 Irregular menstruation, unspecified (principal)
CPT/HCPCS: 36415; 84702

== ENCOUNTER → 2021-03-23 10:18 | Outpatient (CLI) | payer BC, SELFPAY ==
--- NOTE | 2021-03-23 10:18 | US_ITS ---
PROCEDURE: US OB <= 14 WEEKS FETUS CLINICAL INDICATION: for dates COMPARISON: US OBFEMAT US OB /maternal detail from 07/17/2017 FINDINGS: An intrauterine gestational sac is present with a pole with a crown-rump length of 0.83cm correlating to gestational age of 6weeks 6days. heart tones are present with an FHR of 154bpm. Yolk sac is noted. The uterus is retroverted. No cul-de-sac fluid apparent. IMPRESSION: Live IUP at 6 weeks 6 days Estimated due date by Ultrasound is 11/10/2021 Dictated by: Trevon Ibarra MD 03/23/2021 17:20 Trevon Ibarra MD in OV 03/23/2021 17:20
== END ==
PROVIDERS: PCP Internal Medicine Adolescent Medicine; Visit Provider Nurse Practitioner Obstetrics & Gynecology
DX: Z34.90 Encounter for supervision of normal pregnancy, unspecified, unspecified trimester (principal)
CPT/HCPCS: 76801

== ENCOUNTER → 2021-05-04 12:55 | Outpatient (CLI) | payer BC, SELFPAY ==
[2021-05-04 13:57] LABS: Basophils # 0.1 K/mm3 (0-0.2); Basophils % 1.5 % (0.1-2.0); Eosinophils % 0.5 % (0.1-12.0); Hematocrit 41.5 % (37.0-47.0); Hemoglobin 13.3 g/dL (12.2-16.2); Lymphocytes # 1.4 K/mm3 (0.7-4.5); Lymphocytes % 15.3 % (10-50); Mean Corpuscular HGB Conc 32.1 g/dL (31.8-35.4); Mean Corpuscular Hemoglobin 30.3 pg (27.0-31.2); Mean Corpuscular Volume 94.3 fl (81-99); Monocytes # 0.4 K/mm3 (0.1-1.0); Monocytes % 4.8 % (1.7-9.3); Neutrophils # 7.1 K/mm3 (1.8-7.8); Neutrophils % 77.9 % (37.0-80.0); Platelet Count 300 K/mm3 (142-424); Red Cell Distribution Width 12.6 % (11.5-17.5); White Blood Count 9.2 K/mm3 (4.8-10.8)
[2021-05-05 07:11] LABS: HIV Screen 4th Generation wRfx Non Reactive (Non Reactive)
[2021-05-05 11:47] LABS: Rapid Plasma Reagin Ab Titer Non Reactive (NonRea<1:1)
[2021-05-05 12:10] LABS: Hepatitis B Surface Antigen Negative (Negative); Hepatitis C Antibody 0.2 s/co ratio (0.0-0.9)
[2021-05-06 06:10] LABS: HSV 2 IgG, Type Spec <0.91 index (0.00-0.90)
== END ==
PROVIDERS: Visit Provider Nurse Practitioner Obstetrics & Gynecology
DX: Z34.90 Encounter for supervision of normal pregnancy, unspecified, unspecified trimester (principal)
CPT/HCPCS: 36415; 85025; 86592; 86695; 86703; 86762; 86790; 86850; 87340; 87380; G0432

== ENCOUNTER → 2021-06-23 13:40 | Outpatient (CLI) | payer BC, SELFPAY ==
--- NOTE | 2021-06-23 13:41 | US_ITS ---
FINAL REPORT CLINICAL HISTORY: US OB COMPLETE 20 wk+ Anatomy Scan FINDINGS: There is a single live intrauterine gestation. Presentation is breech. The cervix is closed and measures 3.7 cm. Placenta is posterior grade 1. movement is noted. Heart rate is 158 bpm. Three-vessel cord with satisfactory umbilical cord insertion. AMNIOTIC FLUID: Appropriate amount. NO GROSS ANOMALY IS IDENTIFIED. MEASUREMENTS: ULTRASOUND AGE: 21 weeks 0 days. GESTATION AGE: 20 weeks 1 days. ESTIMATED WEIGHT: 391 g GROWTH PERCENTILE: 88% BPD: 4.93 cm consistent with 21 weeks 0 days. OFD: 6.24 cm consistent with 21 weeks 0 days. HC: 17.67 cm consistent with 20 weeks 2 days. AC: 16.3 cm consistent with 21 weeks 3 days. FL: 3.41 cm consistent with 20 weeks 6 days. CEREBELLUM: 2.07 cm consistent with 21 weeks 0 days. HUMERUS: 3.26 cm consistent with 21 weeks 0 days. HC/AC: 1.08 CI: 79% FL/BPD: 69% FL/AC: 21% IMPRESSION: Single living IUP with an ultrasound age of 21 weeks 0 days. No anomalies noted Reviewed, Interpreted and Dictated by Karlo Hatfield MD Transcribed by Shanon Sloan Authenticated by Karlo Hatfield MD on 06/23/2021 03:53:37 PM [facility]
== END ==
PROVIDERS: PCP Internal Medicine Adolescent Medicine; Visit Provider Nurse Practitioner Obstetrics & Gynecology
DX: Z36.0 Encounter for antenatal screening for chromosomal anomalies (principal)
CPT/HCPCS: 76811

== ENCOUNTER → 2021-08-13 13:26 | Outpatient (CLI) | payer BC, SELFPAY | PROVIDERS: PCP Internal Medicine Adolescent Medicine; Visit Provider Nurse Practitioner Obstetrics & Gynecology | DX: Z34.90 Encounter for supervision of normal pregnancy, unspecified, unspecified trimester (principal) ==

== ENCOUNTER → 2021-08-16 08:57 | Outpatient (CLI) | payer BC, SELFPAY ==
[2021-08-16 09:28] LABS: Glucose,Fasting 82 mg/dl (74-100)
[2021-08-16 11:26] LABS: Glucose 1 Hour 78 mg/dL (74-100)
== END ==
PROVIDERS: Visit Provider Nurse Practitioner Obstetrics & Gynecology
DX: Z34.90 Encounter for supervision of normal pregnancy, unspecified, unspecified trimester (principal)
CPT/HCPCS: 36415; 82951

== ENCOUNTER → 2021-10-13 19:42 | Outpatient (CLI) | payer BC, SELFPAY | PROVIDERS: Visit Provider Nurse Practitioner Obstetrics & Gynecology | DX: Z34.90 Encounter for supervision of normal pregnancy, unspecified, unspecified trimester (principal) | CPT/HCPCS: 86403 ==

== ENCOUNTER 2021-11-02 03:09 | Inpatient (IN) | payer BC, SELFPAY ==
[2021-11-02 02:08] VITALS: BMI 26.0
[2021-11-02 02:14] LABS: Microscopic, Urine URINE MICROSCOPIC (MICROSCOPIC)
[2021-11-02 02:17] LABS: Appearance,Urine CLEAR (Clear); Bilirubin,Urine Negative (Negative); Blood, Urine 1+ (Negative); Color,Urine YELLOW (Yellow); Glucose,Urine (UA) Negative (Negative); Ketones,Urine Negative (Negative); Leukocyte Esterase,Urine Negative (Negative); Nitrate,Urine Negative (Negative); PH,Urine 6.5 (5.0-8.5); Protein,Urine Negative (Negative); Urobilinogen,Urine 0.2 EU/dl (0.2)
[2021-11-02 02:29] LABS: Benzodiazepines Screen,Urine Negative ng/ml (<200)
[2021-11-02 02:30] VITALS: BP 125/78; PULSE 84; RESP 18; TEMP 36.8; O2SAT 98; BMI 26.0
[2021-11-02 02:30] LABS: Amphetamine/Metha Screen,Urine Negative ng/ml (<1000); Barbiturates Screen,Urine Negative ng/ml (<200)
[2021-11-02 02:31] LABS: Cannabinoid Screen,Urine Negative ng/ml (<50)
[2021-11-02 02:32] LABS: Cocaine Screen,Urine Negative ng/ml (<300); Methadone Screen,Urine Negative ng/ml (<300)
[2021-11-02 02:33] LABS: Opiate Screen,Urine Negative ng/ml (<300)
[2021-11-02 02:34] LABS: Phencyclidine Screen,Urine Negative ng/ml (<25)
[2021-11-02 02:47] LABS: Bacteria,Urine 1+ /lpf; Squamous Epithelial Cell,Urine Occasional #/hpf (0-5)
[2021-11-02 03:34] LABS: Coronavirus 19, PCR Not Detected (NotDetected); Influenza A, PCR Not Detected (NotDetected); Influenza B, PCR Not Detected (NotDetected)
[2021-11-02 03:44] LABS: Basophils % 0.3 % (0.1-2.0); Eosinophils # 0.1 K/mm3 (0.0-0.4); Eosinophils % 0.8 % (0.1-12.0); Hematocrit 32.4 % (37.0-47.0); Hemoglobin 11.2 g/dL (12.2-16.2); Lymphocytes # 2.7 K/mm3 (0.7-4.5); Lymphocytes % 23.5 % (10-50); Mean Corpuscular HGB Conc 34.7 g/dL (31.8-35.4); Mean Corpuscular Volume 77.8 fl (81-99); Mean Platelet Volume 7.1 fl (7.4-10.4); Monocytes # 0.6 K/mm3 (0.1-1.0); Monocytes % 5.4 % (1.7-9.3); Neutrophils # 7.9 K/mm3 (1.8-7.8); Platelet Count 262 K/mm3 (142-424); Red Blood Count 4.16 M/mm3 (4.20-5.40); White Blood Count 11.3 K/mm3 (4.8-10.8)
--- NOTE | 2021-11-02 07:23 | HMH.OBAPHP ---
OB - H&P: HPI Antepartum - History of Present Illness Chief complaint: Painful uterine contractions History of present illness: Mrs Radha Guerrero is a 26 yo at 39w1d, by first trimester ultrasound, consistent with LMP, who presented to [facility] for painful uterine contractions. She states contractions started on Monday night, 10/31/21, around 2300. Contractions increased in frequency and intensity last night, 11/01/21, around 2300. She reported good movement. Denied vaginal bleeding and leakage of fluid. GBS negative. - History of Present Criteria for establishing EDC:: LMP confirmed by 1st trimester US care: good care Obstetrical complications: none Medical complications: none - Labs Blood type: O (+) positive Rubella: immune RPR/VDRL: nonreactive GBS status: negative HBsAG: negative [facility] History I have reviewed the patient's past medical history: Yes Medical History: Reports:: Anxiety, Depression, Kidney Stones Denies:: Cancer, Diabetes Mellitus Type 1, Diabetes Mellitus Type 2, Hyperlipidemia, Hypertension, Internal Pacemaker, MRSA, Seizures *Have you ever received a pneumonia vaccine?: No *Have you received a flu vaccine this season?: No Other Medical History: Denies: Blood Transfusion Reaction Other Surgeries: Yes: No Previous Surgery. No: , Pacemaker Amputation: No Fractures: No - *Social History Smoking Status: Never smoker Alcohol Intake: current Alcohol Intake Frequency:: a few times a month Substance Use Type: marijuana *Occupational Status:: employed Housing: house Household Members: family *Travel in the last 8 weeks: None - Psychiatric History Pschychiatric History:: Reports:: Anxiety, Depression Family Hx:: No significant family history Para: 1 Review of Systems - Review of Systems Review of systems:: pertinent systems reviewed and negative unless documented below Meds Home Medications Medication Instructions Recorded Confirmed Type pediatric multivitamin no.76 1 tab PO DAILY 05/12/21 11/02/21 History Allergies Allergy/AdvReac Type Severity Reaction Status Date / Time No Known Allergies Allergy Verified 10/26/21 12:31 OB - H&P: Exam - Physical Exam Vital signs: Temp Pulse Resp BP Pulse Ox 98.3 F 84 18 125/78 98 11/02/21 02:30 11/02/21 02:30 11/02/21 02:30 11/02/21 02:30 11/02/21 02:30 - Constitutional no acute distress - Routine HEENT Exam Head: Present: normocephalic Eye: Absent: conjunctivae pink ENT: Present: mucous membranes moist - Routine Respiratory Exam Present: CTA bilaterally - Routine Cardiovascular Exam Present: RRR - Routine Abdominal Exam Present: soft (Gravid). Absent: tenderness - Routine Exam External: Present: normal urethra appearance. Absent: lesions, lacerations, vulvar erythema, vulvar tenderness - Routine Extremities Exam Present: full ROM. Absent: edema, calf tenderness - Routine Neurological Exam Present: alert, oriented X3 OB - Results - Labs Labs: Short CBC 11/02/21 Range/Units 03:00 WBC 11.3 H (4.8-10.8) K/mm3 Hgb 11.2 L (12.2-16.2) g/dL Hct 32.4 L (37.0-47.0) % Plt Count 262 (142-424) K/mm3 Urine 11/02/21 Range/Units 02:06 Urine Color Yellow (Yellow) Urine Appearance Clear (Clear) Urine pH 6.5 (5.0-8.5) Ur Specific [place] 1.020 (1.005-1.030) Urine Protein Negative (Negative) Urine Glucose (UA) Negative (Negative) OB - A/P Antepartum (1) with 39 completed weeks gestation Status: Acute (2) Spontaneous onset of labor Status: Acute (3) Anxiety Status: Acute (4) Depression Status: Acute (5) History of nephrolithiasis Status: Acute (6) Marijuana use Status: Acute - Additional Plan Planning to breastfeed?: Yes Additional Information:: Admit to L&D for onset of labor GBS negative Close monitor
[2021-11-02 07:54] VITALS: BP 116/64; PULSE 86; RESP 18; TEMP 36.6; O2SAT 98
--- NOTE | 2021-11-02 08:23 | P.PN_ITS ---
[facility] Anesthesia Checklist - Patient Identification Patient Identification: Arm Band - Structural Data Admitted From: Inpatient Planned Operative Procedure/s: Labor Epidural Consent for Planned Operative Procedure(s) Verified: Yes Verified Documents: Surgical Consent, History and Physical - NPO Status Verified Time NPO: 00:00 - Additional verifications Anesthesia Reactions: No Hx Blood Transfusions: No Blood Transfusion Reaction: No - Airway Assessment C-Spine Mobility Assessed: Yes (mp2) TMJ Mobility Assessed: Yes Dentition: Good Dentition - Neurological Assessment Level of Consciousness: Awake, Alert - Anesthesia Plan Anesthesia Risk discussed: Yes Anesthesia Plan: Verified ASA Class: I Anesthesia Type: General [facility] History I have reviewed the patient's past medical history: Yes Medical History: Reports:: Anxiety, Depression, Kidney Stones Denies:: Cancer, Diabetes Mellitus Type 1, Diabetes Mellitus Type 2, Hyperlipidemia, Hypertension, Internal Pacemaker, MRSA, Seizures *Have you ever received a pneumonia vaccine?: No *Have you received a flu vaccine this season?: No Other Medical History: Denies: Blood Transfusion Reaction Anesthesia experience/problems:: nac Other Surgeries: Yes: No Previous Surgery. No: , Pacemaker Amputation: No Fractures: No - *Social History Smoking Status: Never smoker Alcohol Intake: current Alcohol Intake Frequency:: a few times a month Substance Use Type: marijuana *Occupational Status:: employed Housing: house Household Members: family *Travel in the last 8 weeks: None - Psychiatric History Pschychiatric History:: Reports:: Anxiety, Depression Family Hx:: No significant family history Para: 1
--- NOTE | 2021-11-02 12:31 | HMH.DN ---
- Delivery Note Delivery Date:: 11/02/21 Delivery Time:: 12:15 Anesthesia Type: Epidural Was labor medically induced?: No Induction method: none delivered prior to 39 weeks?: No Gender: Male at 1 minute: 8 at 5 minutes: 9 Delivery Procedure:: Mom complete with epidural. Pushed for approximately one push. Head delivered spontaneously over intact perineum in CRUZ position. Anterior shoulder delivered with gentle downward pressure. Posterior shoulder and remainder of body delivered spontaneously. Baby placed on maternal abdomen, mouth and nares bulb suctioned, warmed/dried and stimulated. Delayed cord clamping was performed for 60 seconds. Cord was clamped. Cord was cut by father of baby. Cord blood was obtained. Section of umbilical cord was collected. Placenta delivered spontaneously and intact. No lacerations. Mom and baby were skin to skin and doing well after delivery. Live male baby (baby's name is Chris) APGARs 8, 0 EBL 150 cc Placental Delivery Description: Spontaneous
[2021-11-02 16:26] VITALS: BP 111/63; PULSE 73; RESP 16; TEMP 36.7
[2021-11-03 07:05] LABS: Hematocrit 31.6 % (37.0-47.0); Hemoglobin 9.6 g/dL (12.2-16.2)
[2021-11-03 08:00] VITALS: BP 120/67; PULSE 70; RESP 16; TEMP 36.4; O2SAT 98
--- NOTE | 2021-11-03 13:01 | CARE MANAGER ---
Spoke with patient regarding positive THC in . Patient states that she did use THC prior to finding out she was , the last positive test was 06/22. Patient has been negative since and the baby was negative and shows no signs of withdrawl per nursing. No further action deemed necessary.
--- NOTE | 2021-11-03 13:10 | HMH.OBDCSM ---
General - General Admission date:: 11/02/21 Discharge date: 11/03/21 HPI - History of Present Illness History of present illness: PPD #1 s/p Patient is doing well. Light lochia. Denies pain. She is breast feeding. Denies chest pain, shortness of breath, fever/chills and nausea/vomiting. No complaints or concerns. Hospital Course Hospital Course: Mrs Radha Guerrero is a 26 yo at 39w1d admitted to [facility] Labor and Delivery on 11/02/21 for spontaneous labor. Labor was augmented with Pitocin and amniotomy. She had a normal spontaneous vaginal delivery on 11/02/21. She delivered a boy, Chris, weighing 7lb 13 oz. APGARs were 8, 9. EBL was 150 mL. PPD #1 She was doing well. No chief complaints. She is breast feeding. Light lochia. She was urinating without difficulty. Passing flatus. Denied pain. She had no nausea, vomiting, fever/chills, chest pain or shortness of breath. Vitals were within normal limits. Heart was regular rate and rhythm. Lungs were clear to auscultation. Abdomen was soft, nontender, uterine fundus firm and below umbilicus. Extremities were non-edematous and she had no calf tenderness to palpation. Normal hospital course. During this admission, patient's hemoglobin and hematocrit were: 11/02/21: Hgb 11.2, Hct 32.4 11/03/21: Hgb 9.6, Hct 31.6 Rhogam Administration: Not Indicated Objective Vital signs: Temp Pulse Resp BP Pulse Ox 97.5 F L 70 16 120/67 98 11/03/21 08:00 11/03/21 08:00 11/03/21 08:00 11/03/21 08:00 11/03/21 08:00 no acute distress - *Routine HEENT Exam Head: Present: normocephalic, atraumatic Eye: Absent: conjunctivae pink ENT: Present: mucous membranes moist - *Routine Respiratory Exam Present: CTA bilaterally - *Routine Cardiovascular Exam Present: RRR - *Routine Abdominal Exam Present: soft, normoactive bowel sounds. Absent: tenderness, distended - *Routine Extremities Exam Present: full ROM. Absent: edema, calf tenderness - *Routine Neurological Exam Present: alert, oriented X3 Results Labs on day of discharge: Labs from last 24 hours 11/03/21 06:30 Hgb 9.6 L Hct 31.6 L DS: Diagnosis - Discharge Diagnosis (1) with 39 completed weeks gestation Status: Acute (2) Spontaneous onset of labor Status: Acute (3) Anxiety Status: Acute (4) Depression Status: Acute (5) History of nephrolithiasis Status: Acute (6) Marijuana use Status: Acute (7) Anemia due to acute blood loss Status: Acute Discharge Plan - Patient Discharge Instructions ACTIVITY: Continue current activity DIET: continue same diet Additional Instructions: Nothing in the vagina for 6 weeks. Drink plenty of fluids. Patient Instructions: Depression, Hemorrhage, DI for Labor and Delivery, Vaginal , DI for Pre-eclampsia, [facility] Post Discharge Instructions, Preventing the Spread of Coronavirus Discharge Instructions - Follow up Plan Follow up with: Bryan Do MD [Staff Physician] - Disposition: Home, Self-Care Condition at discharge:: Stable Home Medications: Home Medications Medication Instructions Recorded Confirmed Type pediatric multivitamin no.76 1 tab PO DAILY 05/12/21 11/02/21 History Prescriptions/Medication Reconciliation: New Acetaminophen [Acetaminophen 325mg tab] 1,000 mg PO Q6HP PRN tab PRN Reason: Mild Pain Ibuprofen [Motrin 400mg tablet] 800 mg PO Q8HP PRN tab PRN Reason: Mild To Moderate Pain Continued pediatric multivitamin no.76 1 tab PO DAILY - Problem Reconciliation Problems Reviewed?: Yes
--- NOTE | 2021-11-05 15:14 | CARE MANAGER ---
Cord screen from baby is back and it is negative. No further CM needs warranted at this time.
== END 2021-11-03 17:12 | disposition home or self-care (01) | DRG 807 ==
LOC: OBOUT 03:10 → OB 03:10
PROVIDERS: Obstetrics & Gynecology; Admitting Provider Nurse Practitioner Obstetrics & Gynecology; PCP Internal Medicine Adolescent Medicine; Referring Provider Nurse Practitioner Obstetrics & Gynecology; Visit Provider Nurse Practitioner Obstetrics & Gynecology
DX: O80 Encounter for full-term uncomplicated delivery (principal); Z37.0 Single live birth; Z3A.39 39 weeks gestation of pregnancy
CPT/HCPCS: 59409; 36415; 59025; 80305; 81001; 85014; 85018; 85025; 86850; 94761; C9803; G0283; J0595; U0003; U0005

== ENCOUNTER → 2022-12-29 00:09 | Outpatient (CLI) | payer BC, SELFPAY | PROVIDERS: PCP Nurse Practitioner Family; Visit Provider Nurse Practitioner Family | DX: J02.9 Acute pharyngitis, unspecified (principal) | CPT/HCPCS: 87070 ==

== ENCOUNTER → 2023-03-07 11:56 | Outpatient (CLI) | payer BC, SELFPAY ==
[2023-03-16 18:40] LABS: HCG,Quantitative 52215 mIU/ml (0-5.42)
[2023-03-18 10:41] LABS: Progesterone 11.5 ng/mL (.)
== END ==
PROVIDERS: PCP Obstetrics & Gynecology; Visit Provider Obstetrics & Gynecology
DX: Z34.90 Encounter for supervision of normal pregnancy, unspecified, unspecified trimester (principal)
CPT/HCPCS: 84144; 84702

== ENCOUNTER → 2023-03-27 09:53 | Outpatient (CLI) | payer BC, SELFPAY | PROVIDERS: PCP Nurse Practitioner Family; Visit Provider Obstetrics & Gynecology | DX: Z34.91 Encounter for supervision of normal pregnancy, unspecified, first trimester (principal); Z3A.08 8 weeks gestation of pregnancy ==

== ENCOUNTER → 2023-03-27 10:21 | Outpatient (CLI) | payer BC, SELFPAY ==
[2023-03-27 11:20] LABS: Basophils % 0.4 % (0.1-2.0); Eosinophils # 0.1 K/mm3 (0.0-0.4); Eosinophils % 0.5 % (0.1-12.0); Hematocrit 42.4 % (37.0-47.0); Hemoglobin 14.2 g/dL (12.2-16.2); Lymphocytes # 1.8 K/mm3 (0.7-4.5); Lymphocytes % 18.6 % (10-50); Mean Corpuscular HGB Conc 33.4 g/dL (31.8-35.4); Mean Corpuscular Hemoglobin 29.2 pg (27.0-31.2); Mean Corpuscular Volume 87.4 fl (81-99); Mean Platelet Volume 6.9 fl (7.4-10.4); Monocytes # 0.5 K/mm3 (0.1-1.0); Monocytes % 4.9 % (1.7-9.3); Neutrophils # 7.4 K/mm3 (1.8-7.8); Neutrophils % 75.5 % (37.0-80.0); Platelet Count 299 K/mm3 (142-424); Red Blood Count 4.85 M/mm3 (4.20-5.40); Red Cell Distribution Width 13.7 % (11.5-17.5); White Blood Count 9.8 K/mm3 (4.8-10.8)
[2023-03-28 08:39] LABS: HIV Screen 4th Generation wRfx Non Reactive (Non Reactive)
[2023-03-28 13:24] LABS: Rapid Plasma Reagin Ab Titer Non Reactive titer (NonRea<1:1)
[2023-03-29 20:37] LABS: Hepatitis B Surface Antigen Negative
[2023-03-29 20:38] LABS: Hepatitis C Antibody Non Reactive
== END ==
PROVIDERS: PCP Nurse Practitioner Family; Visit Provider Obstetrics & Gynecology
DX: Z34.91 Encounter for supervision of normal pregnancy, unspecified, first trimester (principal); Z3A.08 8 weeks gestation of pregnancy
CPT/HCPCS: 85025; 86593; 86703; 86762; 86850; 87086; 87340; 87380; G0432

== ENCOUNTER 2023-06-21 12:47 | Outpatient (CLI) | payer BC, SELFPAY ==
--- NOTE | 2023-06-21 12:47 | US_ITS ---
PROCEDURE: US OB /MATERNAL DETAIL CLINICAL INDICATION: 20 wk + Anatomy Scan-US OB Complete COMPARISON: No exams were available for comparison FINDINGS: Transabdominal sonographic images of the pelvis were obtained. From her established due date she is 20 weeks 2 days. Single viable intrauterine gestation. Cephalic position. Placenta: Anteriorplacenta grade 1. There is an average amount of fluid. The cervix appears satisfactory. Closed and measuring 3.6 cm in length. Complete survey performed and was unremarkable on the submitted images as in PACS. No discrete anomalies identified on survey imaging by technologist. Active fetus. Three-vessel cord with satisfactory umbilical cord insertion. 4- chamber heart noted. Situs, aortic arch, LVOT, RVOT, three-vessel view appear normal. Survey of brain & ventricles Unremarkable. Cerebellum, thalamus, choroid plexus, cisterna magna appear normal. Face and neck survey unremarkable. Profile, nasion, lips and nose appeared normal. Diaphragm and chest views unremarkable. Abdomen: Both kidneys noted and unremarkable. Stomach and bladder noted and satisfactory. Spine: Survey of the spine satisfactory with no anomalies identified nor imaged. Cervical, thoracic, lower spine appear normal. Both arms and legs noted. Amniotic Fluid: Adequate. Measurements: Average ultrasound age 20weeks 5days. Estimated due date by ultrasound age 0711/03/2023. Estimated weight 368g BPD = 20weeks 4days HC = 20weeks 5days AC = 20weeks 6days FL = 20weeks 4days Growth Percentile= 67 Heart Rate = 146bpm Cerebellum = 20weeks 1day Humerus = 21weeks 3days HC/AC is 1.16 FL/BPD is 0.7 FL/AC is 0.21 IMPRESSION: 1. Viable fetus in the cephalic presentation with an anterior placenta grade 1. 2. The fluid is within normal limits. 3. Anatomical scan appears normal. 4. biometry is consistent with a dates. Dictated by: Bryan Do MD 06/21/2023 17:24 Bryan Do MD in OV 06/21/2023 17:24
== END 2023-06-21 23:59 ==
LOC: RAD 12:47
PROVIDERS: PCP Nurse Practitioner Family; Visit Provider Obstetrics & Gynecology
DX: O26.892 Other specified pregnancy related conditions, second trimester (principal); O99.342 Other mental disorders complicating pregnancy, second trimester; Z3A.20 20 weeks gestation of pregnancy; Z36.3 Encounter for antenatal screening for malformations; F12.90 Cannabis use, unspecified, uncomplicated; F41.1 Generalized anxiety disorder; F41.9 Anxiety disorder, unspecified
CPT/HCPCS: 76811

== ENCOUNTER 2023-08-10 12:21 | Outpatient (CLI) | payer BC, SELFPAY ==
[2023-08-10 12:28] VITALS: BMI 26.7
[2023-08-10 12:45] VITALS: BP 133/63; PULSE 101; RESP 17; O2SAT 98
[2023-08-10] MEDS: 0.9 % SODIUM CHLORIDE 1000ML 1,000 ML 1000 ML IV (12:45)
[2023-08-10 12:53] LABS: Basophils % 0.1 % (0.1-2.0); Eosinophils % 0.1 % (0.1-12.0); Hematocrit 34.6 % (37.0-47.0); Hemoglobin 11.3 g/dL (12.2-16.2); Lymphocytes # 0.6 K/mm3 (0.7-4.5); Lymphocytes % 9.5 % (10-50); Mean Corpuscular HGB Conc 32.8 g/dL (31.8-35.4); Mean Corpuscular Hemoglobin 28.1 pg (27.0-31.2); Mean Corpuscular Volume 85.6 fl (81-99); Mean Platelet Volume 6.8 fl (7.4-10.4); Monocytes # 0.5 K/mm3 (0.1-1.0); Monocytes % 7.5 % (1.7-9.3); Neutrophils # 5.4 K/mm3 (1.8-7.8); Neutrophils % 82.8 % (37.0-80.0); Platelet Count 218 K/mm3 (142-424); Red Blood Count 4.04 M/mm3 (4.20-5.40); Red Cell Distribution Width 13.1 % (11.5-17.5); White Blood Count 6.5 K/mm3 (4.8-10.8)
[2023-08-10 13:11] LABS: Chloride 107 mmol/L (98-107); Potassium 3.3 mmoL/L (3.5-5.1); Sodium 133 mmol/L (136-145)
[2023-08-10 13:14] LABS: Alanine Aminotransferase 20 U/L (12-78); Albumin Level 3.3 g/dl (3.5-5.0); Albumin/Globulin Ratio 1.1 (1.1-1.8); Alkaline Phosphatase 70 U/L (38-126); Anion Gap 7.3 mEq/L (5-15); Aspartate Amino Transferase 30 U/L (14-36); Bilirubin,Total 0.4 mg/dl (0.2-1.3); Blood Urea Nitrogen 6 mg/dl (7-17); Carbon Dioxide 22 mmol/L (22.0-30.0); Creatinine Clearance Estimated 193 mL/min (50-200); Estimated Glomerular Filt Rate 117 ml/min (>60); GFR (African American) 142 ML/MIN (>60); Globulin 3.1 g/dL (1.3-3.2); Total Protein,Serum 6.4 g/dl (6.3-8.2)
[2023-08-10 13:15] LABS: Glucose 96 mg/dl (74-100)
[2023-08-10 13:45] VITALS: BP 133/78; PULSE 101; RESP 16
[2023-08-10 14:07] LABS: Microscopic, Urine URINE MICROSCOPIC (MICROSCOPIC)
[2023-08-10 14:12] LABS: Appearance,Urine CLEAR (Clear); Bilirubin,Urine Negative (Negative); Blood, Urine Negative (Negative); Color,Urine YELLOW (Yellow); Glucose,Urine (UA) Negative (Negative); Ketones,Urine 2+ (Negative); Leukocyte Esterase,Urine Negative (Negative); Nitrate,Urine Negative (Negative); PH,Urine 6.5 (5.0-8.5); Protein,Urine Negative (Negative); Urobilinogen,Urine 0.2 EU/dl (0.2)
[2023-08-10 14:49] LABS: Bacteria,Urine Trace /lpf
== END 2023-08-10 13:55 | disposition home or self-care (01) ==
LOC: INF 12:22
PROVIDERS: PCP Nurse Practitioner Family; Visit Provider Nurse Practitioner Family
DX: E86.0 Dehydration (principal); K52.9 Noninfective gastroenteritis and colitis, unspecified
CPT/HCPCS: 80053; 81001; 85025; 96360

== ENCOUNTER 2023-08-11 11:33 | Outpatient (CLI) | payer BC, SELFPAY ==
[2023-08-11 11:40] LABS: Adenovirus F 40/41, stool Not Detected (NotDetected); Astrovirus Not Detected (NotDetected); Campylobacter Not Detected (NotDetected); Clostridium Difficile A/B, PCR Not Detected (NotDetected); Cryptosporidium Not Detected (NotDetected); Cyclospora Cayetanesis Not Detected (NotDetected); Entamoeba histolytica Not Detected (NotDetected); Enteroaggregative E coli Not Detected (NotDetected); Enteropathogenic E coli Not Detected (NotDetected); Enterotoxigenic E coli Not Detected (NotDetected); Giardia lamblia Not Detected (NotDetected); Plesimonas Shigalloides, PCR Not Detected (NotDetected); Rotavirus A Not Detected (NotDetected); Salmonella, PCR Not Detected (NotDetected); Sapovirus Not Detected (NotDetected); Shiga-like toxin E coli Not Detected (NotDetected); Shigella Enterovasive E coli Not Detected (NotDetected); Vibrio Cholerae Not Detected (NotDetected); Vibrio, PCR Not Detected (NotDetected); Yersinia Entercolitica, PCR Not Detected (NotDetected)
[2023-08-14 09:14] LABS: Norovirus Detected (NotDetected)
== END 2023-08-11 23:59 | disposition home or self-care (01) ==
LOC: LAB.DROPOF 11:34
PROVIDERS: PCP Nurse Practitioner Family; Visit Provider Nurse Practitioner Family
DX: E86.0 Dehydration (principal); A09 Infectious gastroenteritis and colitis, unspecified; A08.19 Acute gastroenteropathy due to other small round viruses; O26.892 Other specified pregnancy related conditions, second trimester; Z3A.27 27 weeks gestation of pregnancy
CPT/HCPCS: 87507

== ENCOUNTER 2023-08-15 12:55 | Outpatient (CLI) | payer BC, SELFPAY ==
[2023-08-15 13:11] LABS: Basophils # 0.1 K/mm3 (0-0.2); Basophils % 0.8 % (0.1-2.0); Eosinophils % 0.4 % (0.1-12.0); Hematocrit 35.2 % (37.0-47.0); Hemoglobin 11.4 g/dL (12.2-16.2); Lymphocytes # 2.2 K/mm3 (0.7-4.5); Lymphocytes % 22.5 % (10-50); Mean Corpuscular HGB Conc 32.3 g/dL (31.8-35.4); Mean Corpuscular Hemoglobin 27.2 pg (27.0-31.2); Mean Corpuscular Volume 84.2 fl (81-99); Monocytes # 0.4 K/mm3 (0.1-1.0); Monocytes % 4.1 % (1.7-9.3); Neutrophils % 72.2 % (37.0-80.0); Platelet Count 268 K/mm3 (142-424); Red Blood Count 4.18 M/mm3 (4.20-5.40); Red Cell Distribution Width 13.7 % (11.5-17.5); White Blood Count 9.7 K/mm3 (4.8-10.8)
[2023-08-15 15:19] LABS: Glucose 1 Hour 106 mg/dL (74-100)
[2023-08-15 15:30] LABS: Glucose,Fasting 79 mg/dl (74-100)
== END 2023-08-15 23:59 ==
LOC: LAB 12:56
PROVIDERS: PCP Nurse Practitioner Family; Visit Provider Obstetrics & Gynecology
DX: O26.893 Other specified pregnancy related conditions, third trimester (principal); Z3A.28 28 weeks gestation of pregnancy
CPT/HCPCS: 36415; 82951; 85025

== ENCOUNTER 2023-10-10 10:28 | Outpatient (CLI) | payer BC, SELFPAY | END 2023-10-10 23:59 | disposition home or self-care (01) | LOC: LAB.DROPOF 10-11 10:28 | PROVIDERS: PCP Obstetrics & Gynecology; Visit Provider Obstetrics & Gynecology | DX: O26.893 Other specified pregnancy related conditions, third trimester (principal); Z3A.36 36 weeks gestation of pregnancy | CPT/HCPCS: 86403 ==

== ENCOUNTER 2023-10-30 01:29 | Inpatient (IN) | payer BC, SELFPAY ==
[2023-10-30 01:01] VITALS: BMI 29.7
[2023-10-30 01:56] LABS: Basophils % 0.4 % (0.1-2.0); Eosinophils # 0.1 K/mm3 (0.0-0.4); Eosinophils % 0.9 % (0.1-12.0); Hematocrit 30.5 % (37.0-47.0); Hemoglobin 10.1 g/dL (12.2-16.2); Lymphocytes # 1.9 K/mm3 (0.7-4.5); Lymphocytes % 25.3 % (10-50); Mean Corpuscular HGB Conc 33.1 g/dL (31.8-35.4); Mean Corpuscular Hemoglobin 25.1 pg (27.0-31.2); Mean Corpuscular Volume 75.6 fl (81-99); Monocytes # 0.4 K/mm3 (0.1-1.0); Monocytes % 5.1 % (1.7-9.3); Neutrophils # 5.2 K/mm3 (1.8-7.8); Neutrophils % 68.3 % (37.0-80.0); Platelet Count 236 K/mm3 (142-424); Red Blood Count 4.04 M/mm3 (4.20-5.40); Red Cell Distribution Width 16.3 % (11.5-17.5); White Blood Count 7.6 K/mm3 (4.8-10.8)
[2023-10-30 01:57] LABS: Microscopic, Urine URINE MICROSCOPIC (MICROSCOPIC)
[2023-10-30 02:02] VITALS: BP 140/89; PULSE 90; RESP 20; TEMP 36.9; O2SAT 100; BMI 29.7
[2023-10-30 02:09] LABS: Appearance,Urine CLEAR (Clear); Bilirubin,Urine Negative (Negative); Blood, Urine Negative (Negative); Color,Urine YELLOW (Yellow); Glucose,Urine (UA) Negative (Negative); Ketones,Urine Negative (Negative); Leukocyte Esterase,Urine Negative (Negative); Nitrate,Urine Negative (Negative); PH,Urine 6.5 (5.0-8.5); Protein,Urine Negative (Negative); Specific Gravity, Urine 1.025 (1.005-1.030); Urobilinogen,Urine 0.2 EU/dl (0.2)
[2023-10-30 02:11] LABS: Amphetamine/Metha Screen,Urine Negative ng/ml (<1000); Barbiturates Screen,Urine Negative ng/ml (<200)
[2023-10-30 02:12] LABS: Benzodiazepines Screen,Urine Negative ng/ml (<200)
[2023-10-30 02:13] LABS: Cannabinoid Screen,Urine Negative ng/ml (<50); Cocaine Screen,Urine Negative ng/ml (<300)
[2023-10-30 02:14] LABS: Methadone Screen,Urine Negative ng/ml (<300); Opiate Screen,Urine Negative ng/ml (<300)
[2023-10-30 02:15] LABS: Phencyclidine Screen,Urine Negative ng/ml (<25)
[2023-10-30] MEDS: BUTORPHANOL TARTRATE 1 MG/ML VIAL IV (02:25)
[2023-10-30 02:35] LABS: Bacteria,Urine Trace /lpf; Mucus,Urine Trace /lpf
[2023-10-30 02:36] LABS: Renal Epithelial Cells,Urine Occasional #/lpf (0)
[2023-10-30] MEDS: DEXTROSE 5%-LACTATED RINGERS 1,000 ML 125 ML IV (05:00)
[2023-10-30] MEDS: LACTATED RINGERS 1000ML 1,000 ML 250 ML IV ×2 (05:19→05:26)
--- NOTE | 2023-10-30 06:01 | EXP.ANES.CKL ---
[facility] Disclaimer: The information contained in this section may have been updated after the patient was seen, as this information can be updated by other users. Medical History Heartburn during Nausea and vomiting in Anxiety disorder affecting , antepartum Generalized anxiety disorder LGSIL on Pap smear of cervix Marijuana use History of nephrolithiasis Depression Anxiety Surgical History No significant past surgical history Family History Other Asthma Cancer Diabetes Hyperlipidemia Hypertension Social History Smoking Status: Never smoker second hand exposure: Yes (her family smokes; her parents do; her fianc? 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 Anesthesia Checklist Patient Identification Patient Identification: Arm Band and Verbal (Name & ) Structural Data Admitted From: Inpatient Planned Operative Procedure/s: Labor epidural Consent for Planned Operative Procedure(s) Verified: Yes Verified Documents: History and Physical NPO Status Verified Time NPO: 00:00 Chart Verification Results Verified: CBC and BMP Additional verifications Patient : Yes Anesthesia Reactions: No Hx Blood Transfusions: No Blood Transfusion Reaction: No Airway Assessment Mallampati Score:: Class II C-Spine Mobility Assessed: Yes TMJ Mobility Assessed: Yes Dentition: Good Dentition Neurological Assessment Level of Consciousness: Awake Hx Seizures: No Numbness or tingling in extremities: No Anesthesia Plan Anesthesia Risk discussed: Yes Anesthesia Plan: Verified ASA Class: II Anesthesia Type: Epidural
--- NOTE | 2023-10-30 06:18 | P.HP_ITS ---
OB - H&P: HPI Antepartum History of Present Illness Chief complaint: Regular, painful contractions History of present illness: Mrs Radha Guerrero is a 28 yo at 39w0d who presents to [facility] L&D for regular, painful contractions. She arrived at 0100. She was scheduled for elective induction of labor at 0530 this morning. She has had good care. GBS negative. On admission, cervix was 3/75/-2. At 0500 cervix was 7/90/0 with bulging bag. History of Present Criteria for establishing EDC:: LMP confirmed by 1st trimester US care: good care Ultrasounds: normal mid trimester US Obstetrical complications: none Medical complications: none Labs Blood type: O (+) positive Rubella: immune RPR/VDRL: nonreactive GBS status: negative HBsAG: negative PFSH [facility] Disclaimer: The information contained in this section may have been updated after the patient was seen, as this information can be updated by other users. Medical History (Updated 10/30/23 @ 06:30 by Eveline Holbrook DO) Spontaneous onset of labor Heartburn during Nausea and vomiting in Anxiety disorder affecting , antepartum Generalized anxiety disorder LGSIL on Pap smear of cervix Marijuana use History of nephrolithiasis Depression Anxiety Surgical History No significant past surgical history Family History Other Asthma Cancer Diabetes Hyperlipidemia Hypertension Social History Smoking Status: Never smoker second hand exposure: Yes (her family smokes; her parents do; her fianc? 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 Hx Recent Travel: No sexually active: Yes are you practicing safe sex: Yes caffeine: Yes physical activity: none fredy/hoahaoism: Confucianism special fredy needs: No working smoke detector in home: Yes fire extinguisher in home: Yes carbon monox detector in home: No firearms in home: Yes firearms unloaded and locked: Yes do you feel safe at home: Yes victim of physical abuse: No victim of emotional abuse: No victim of sexual abuse: No Review of Systems Review of Systems Review of systems:: pertinent systems reviewed and negative unless documented below Meds Home Medications and Allergies Home Medications Medication Instructions Recorded Confirmed Type doxylamine succinate 25 mg tablet 12.5 mg (1/2 x 25 mg) PO HS PRN 03/27/23 10/27/23 Rx (Unisom (doxylamine)) sleep #30 tabs desvenlafaxine succinate 25 mg 25 mg PO DAILY #30 tabs 10/10/23 10/27/23 Rx tablet,extended release 24 hr (Pristiq) pantoprazole 40 mg tablet,delayed 40 mg PO DAILY #30 tabs 10/10/23 10/27/23 Rx release (Protonix) New Prescriptions to Start Prescriptions: Allergies Allergy/AdvReac Type Severity Reaction Status Date / Time No Known Allergies Allergy Verified 10/27/23 08:41 OB - H&P: Exam Physical Exam Vital signs: Temp Pulse Resp BP Pulse Ox O2 Del Method 98.4 F 90 20 140/89 100 Room Air 10/30/23 02:02 10/30/23 02:02 10/30/23 02:02 10/30/23 02:02 10/30/23 02:02 10/30/23 02:02 Constitutional no acute distress and cooperative Routine HEENT Exam Head: Present normocephalic and atraumatic Eye: Absent conjunctivae pink ENT: Present mucous membranes moist Routine Neck Exam Present full ROM Routine Respiratory Exam Present CTA bilaterally and normal respiratory effort Routine Cardiovascular Exam Present RRR Routine Abdominal Exam Present soft (Gravid); Absent tenderness Routine Rectal Exam Patient deferred: visual exam Routine Exam External: Present normal urethra appearance; Absent erythema, tenderness, lesions, lacerations or vulvar erythema Routine Extremities Exam Present edema (+2 bilateral lower extremity edema ) and full ROM; Absent calf tenderness Routine Neurological Exam Present alert, moving all extremities and normal speech Routine Psychiatric Exam Present normal affect and cooperative Detailed Labor and Delivery Exam Dilation (cm): 7 Effacement (%): 90 station: 0 Consistency: soft Membranes: artificially ruptured (amniotomy performed at 0612) Amniotic fluid: thin meconium Baseline heart rate: 120 monitor accelerations: Present monitor decelerations: None residential variability: Moderate (11-25) Contraction frequency (min): 3 Tachysystole: No OB - Results Labs Labs: Short CBC 10/30/23 Range/Units 01:45 WBC 7.6 (4.8-10.8) K/mm3 Hgb 10.1 L (12.2-16.2) g/dL Hct 30.5 L (37.0-47.0) % Plt Count 236 (142-424) K/mm3 Urine 10/30/23 Range/Units 01:00 Urine Color Yellow (Yellow) Urine Appearance Clear (Clear) Urine pH 6.5 (5.0-8.5) Ur Specific Fowler 1.025 (1.005-1.030) Urine Protein Negative (Negative) Urine Glucose (UA) Negative (Negative) OB - A/P Antepartum (1) Spontaneous onset of labor: Status: Acute (2) Anxiety disorder affecting , antepartum: Status: Acute Additional Plan Planning to breastfeed?: Yes Plan: expectant management Additional Information:: Admit to [facility] for spontaneous labor GBS negative Close monitoring She received epidural Anticipate
[2023-10-30] MEDS: OXYTOCIN/RINGERS LACTATE 30 UNITS/500 ML BAG 40 UNITS IV (06:51)
--- NOTE | 2023-10-30 07:12 | EXP.DN ---
Delivery Note Delivery Date:: 10/30/23 Delivery Time:: 06:47 Anesthesia Type: Epidural Was labor medically induced?: No Gestational age (weeks): 39 Infant delivered prior to 39 weeks?: No Justification for early elective delivery:: Active Labor Infant Gender: Male at 1 minute: 9 at 5 minutes: 9 Delivery Procedure:: Mom complete with epidural. Pushed for approximately two contractions. Head delivered spontaneously over intact perineum in CRUZ position. No nuchal cord. Anterior shoulder delivered with gentle downward pressure. Posterior shoulder and remainder of body delivered spontaneously. Baby placed on maternal abdomen, mouth and nares bulb suctioned, warmed/dried and stimulated. Delayed cord clamping was performed for 60 seconds. Cord was clamped and cut. Cord blood was obtained. Placenta delivered spontaneously and intact. No lacerations. Mom and baby were skin to skin and doing well after delivery. Live male baby (baby's name is Saulo) APGARs 9 (1 min), 9 (5 min) EBL 50 mL Placental Delivery Description: Spontaneous
[2023-10-30] MEDS: diphenhydrAMINE 25MG CAPSULE 25 MG PO (07:38)
[2023-10-30 08:31] VITALS: BP 121/70; PULSE 64; RESP 18; TEMP 36.9; O2SAT 100
--- NOTE | 2023-10-30 08:56 | P.CONPHA_ITS ---
Pharmacy Intervention Comments: MEDICATION RECONCILIATION COMPLETED ON PATIENT USING EXTERNAL FILL HISTORY FROM PHARMACY AND LIST FROM LOG WASHER OFFICE. -MINOO LINARESD
--- NOTE | 2023-10-30 08:56 | HMH.PHAINT1 ---
Pharmacy Intervention Comments: MEDICATION RECONCILIATION COMPLETED ON PATIENT USING EXTERNAL FILL HISTORY FROM PHARMACY AND LIST FROM TECHNICAL ACCOUNT REPRESENTATIVE OFFICE. -MINOO LINARESD
[2023-10-30] MEDS: PRENATAL MULTIVITAMIN W/IRON 1 EACH PO (16:36)
[2023-10-30 21:01] VITALS: BP 129/76; PULSE 64; RESP 18; TEMP 36.7; O2SAT 99
[2023-10-30] MEDS: ACETAMINOPHEN 500MG TAB 1000 MG PO (23:23)
[2023-10-30] MEDS: IBUPROFEN 400 MG TABLET 800 MG PO (23:23)
[2023-10-31 03:59] VITALS: BP 128/74; PULSE 75; RESP 18; TEMP 36.7; O2SAT 98
[2023-10-31 07:19] LABS: Basophils % 0.4 % (0.1-2.0); Eosinophils # 0.1 K/mm3 (0.0-0.4); Eosinophils % 1.4 % (0.1-12.0); Hematocrit 31.4 % (37.0-47.0); Lymphocytes # 2.7 K/mm3 (0.7-4.5); Lymphocytes % 28.5 % (10-50); Mean Corpuscular HGB Conc 31.8 g/dL (31.8-35.4); Mean Corpuscular Volume 75.5 fl (81-99); Mean Platelet Volume 7.9 fl (7.4-10.4); Monocytes # 0.4 K/mm3 (0.1-1.0); Monocytes % 3.8 % (1.7-9.3); Neutrophils # 6.2 K/mm3 (1.8-7.8); Neutrophils % 65.9 % (37.0-80.0); Platelet Count 236 K/mm3 (142-424); Red Blood Count 4.16 M/mm3 (4.20-5.40); Red Cell Distribution Width 16.1 % (11.5-17.5); White Blood Count 9.4 K/mm3 (4.8-10.8)
[2023-10-31] MEDS: ACETAMINOPHEN 500MG TAB 1000 MG PO (08:35)
[2023-10-31] MEDS: IBUPROFEN 400 MG TABLET 800 MG PO (08:35)
[2023-10-31 08:38] VITALS: BP 121/73; PULSE 80; RESP 17; TEMP 36.7; O2SAT 98
--- NOTE | 2023-10-31 09:02 | EXP.DC.SUM ---
General Admission date:: 10/30/23 Discharge date: 10/31/23 HPI HPI HPI: PPD # 1 s/p Feeling well. Pain controlled. Breast feeding. Lochia is appropriate. Voiding without difficulty and passing flatus. Tolerating regular diet. Denies fever/chills, chest pain and shortness of breath. No headaches, vision changes, lightheadedness/dizziness. No lower extremity swelling. Ambulating well ad patrick. Hospital Course Hospital Course Hospital Course: Mrs Rahda Guerrero is a 28 yo at 39w0d who presents to [facility] L&D for regular, painful contractions. She arrived at 0100. She was scheduled for elective induction of labor at 0530 that morning. She had good care. GBS negative. On admission, cervix was 3/75/-2. At 0500 cervix was 7/90/0 with bulging bag. She had a normal spontaneous vaginal delivery on 10/30/23 at 0647. She delivered a live male baby, Saulo, APGARs 9 (1 min), 9 (5 min) EBL 50 mL. She did well . Pain controlled. Breast feeding. Light lochia. Voiding without difficulty and passing flatus. Tolerating regular diet. Denies fever/chills, chest pain and shortness of breath. No headaches, dizziness/lightheadedness or vision changes. Vital signs stable, afebrile. Heart regular rate and rhythm. Lungs clear to auscultation. Abdomen soft, nontender. No lower extremity swelling. Ambulating well ad patrick. Normal hospital course. She was discharged to home on POD # 1 with instructions to follow-up in the office in 2 weeks or sooner if needed. Exam Data for Last 24 hours Vital signs and Labs for Last 24 Hours: Temp Pulse Resp BP Pulse Ox O2 Del Method 98.0 F 75 18 128/74 98 Room Air 10/31/23 03:59 10/31/23 03:59 10/31/23 03:59 10/31/23 03:59 10/31/23 03:59 10/31/23 03:59 Laboratory Results - last 24 hr 10/31/23 06:37: WBC 9.4, RBC 4.16 L, Hgb 10.0 L, Hct 31.4 L, MCV 75.5 L, MCH 24.0 L, MCHC 31.8, RDW 16.1, Plt Count 236, MPV 7.9, Neut % (Auto) 65.9, Lymph % (Auto) 28.5, [place] % (Auto) 3.8, Eos % (Auto) 1.4, Baso % (Auto) 0.4, Neut # (Auto) 6.2, Lymph # (Auto) 2.7, [place] # (Auto) 0.4, Eos # (Auto) 0.1, Baso # (Auto) 0.0 I & O for Last 24 hours: Intake & Output 10/28/23 10/29/23 10/30/23 10/31/23 23:59 23:59 23:59 23:59 Weight 219 lb Constitutional Constitutional: no acute distress and cooperative *Routine HEENT Exam Head: Present normocephalic and atraumatic Eye: Absent conjunctivae pink ENT: Present mucous membranes moist *Routine Neck Exam Neck: Present full ROM *Routine Respiratory Exam Respiratory: Present CTA bilaterally and normal respiratory effort *Routine Cardiovascular Exam Cardiovascular: Present RRR *Routine Abdominal Exam Abdominal: Present soft and normoactive bowel sounds; Absent tenderness or distended Comments: Uterine fundus firm and below umbilicus *Routine Rectal Exam Patient deferred: visual exam *Routine Exam Patient deferred: external exam *Routine Extremities Exam Extremities: Present full ROM; Absent edema or calf tenderness *Routine Neurological Exam Neurological: Present alert, moving all extremities and normal speech Routine Psychiatric Exam Psychiatric: Present normal affect and cooperative Results Data Completed and Pending Labs on day of discharge: Labs from last 24 hours 10/31/23 06:37 WBC 9.4 RBC 4.16 L Hgb 10.0 L Hct 31.4 L MCV 75.5 L MCH 24.0 L MCHC 31.8 RDW 16.1 Plt Count 236 MPV 7.9 Neut % (Auto) 65.9 Lymph % (Auto) 28.5 [place] % (Auto) 3.8 Eos % (Auto) 1.4 Baso % (Auto) 0.4 Neut # (Auto) 6.2 Lymph # (Auto) 2.7 [place] # (Auto) 0.4 Eos # (Auto) 0.1 Baso # (Auto) 0.0 DS: Diagnosis Discharge Diagnosis (1) Spontaneous onset of labor: Status: Acute (2) Anxiety disorder affecting , antepartum: Status: Acute Code(s): O99.340 - Other mental disorders complicating , unspecified trimester; F41.9 - Anxiety disorder, unspecified Meds Home Medications and Allergies Home Medications Medication Instructions Recorded Confirmed Type desvenlafaxine succinate 25 mg 25 mg PO DAILY #30 tabs 10/10/23 10/30/23 Rx tablet,extended release 24 hr (Pristiq) pantoprazole 40 mg tablet,delayed 40 mg PO DAILY #30 tabs 10/10/23 10/30/23 Rx release (Protonix) doxylamine succinate 25 mg tablet 12.5 mg PO HSP PRN sleep 10/30/23 10/30/23 History (Unisom (doxylamine)) New Prescriptions to Start Prescriptions: Allergies Allergy/AdvReac Type Severity Reaction Status Date / Time No Known Allergies Allergy Verified 10/27/23 08:41 Discharge Plan Disposition Patient Disposition: Home, Self-Care Condition: Good Discharge Order Discharge Orders: Discharge Order (Routine); Ordered 10/31/23 Ordered By: Eveline Holbrook Follow up Plan Follow up with: Eveline Holbrook DO [Staff Physician] - 2 weeks Prescriptions/Medication Reconciliation: Continued pantoprazole [Protonix] 40 mg tablet,delayed release (DR/EC) 40 mg PO DAILY Qty: 30 2RF desvenlafaxine succinate [Pristiq] 25 mg tablet extended release 24 hr 25 mg PO DAILY Qty: 30 2RF Unisom (doxylamine) 25 mg tablet 12.5 mg PO HSP PRN (Reason: sleep) Problem Reconciliation Problems Reviewed?: Yes Patient Discharge Instructions ACTIVITY: Limited activity DIET: continue same diet and regular diet Additional Instructions: Discharge: 1. Take 800 mg Ibuprofen every 8 hours as needed for pain. You can also take 500-1000 mg of Tylenol in between doses, every 6-8 hours. 2. Nothing in the vagina for 6 weeks - no intercourse, douching or tampons. No tub baths/hot tubs or swimming pools 3. Reasons to return to L&D or call On-Call doctor - fever (greater than 100.4) - heavy vaginal bleeding (soaking through 1 pad in less than 2 hours) - vaginal discharge (malodorous and/or purulent) - severe headaches not resolved by medication or rest and leg tenderness/edema 4. depression/blues - Normal to feel anxious/overwhelmed for first 2 weeks - Talk to your doctor if: severe anxiety, trouble bonding with baby, withdrawing from other family members, thoughts of harming yourself or others Eveline Holbrook DO [facility] [place] [phone] Providers Primary Care Provider: Isai Reilly Admmagda Provider: Eveline Holbrook Attending Provider: Eveline Holbrook
== END 2023-10-31 16:25 | disposition home or self-care (01) | DRG 807 ==
LOC: OBOUT 01:29 → OB 01:29
PROVIDERS: Admitting Provider Obstetrics & Gynecology; PCP Internal Medicine Adolescent Medicine; Visit Provider Obstetrics & Gynecology
DX: O99.344 Other mental disorders complicating childbirth (principal); Z37.0 Single live birth; Z3A.39 39 weeks gestation of pregnancy; F41.1 Generalized anxiety disorder; F32.A Depression, unspecified
CPT/HCPCS: 59409; 36415; 59025; 80307; 81001; 85025; 86850; 94761; G0283; J0595; J3010; J7120

== ENCOUNTER 2024-03-15 13:42 | Outpatient (CLI) | payer BC, SELFPAY ==
--- NOTE | 2024-03-15 13:46 | US_ITS ---
FINAL REPORT CLINICAL HISTORY: PALP NODULE LAT LT HUMERUS FINDINGS: ULTRASOUND SOFT TISSUES OF THE LEFT HUMERUS TECHNIQUE: Limited sonographic imaging of the soft tissues of the lateral left humerus were obtained. FINDINGS: At the area of interest, in the left upper arm, there is a solid mass measuring 1.8 cm. This appears hypervascular and is worrisome for neoplasm or a vascular malformation. IMPRESSION: Solid mass at the area of interest in the left upper arm is worrisome for neoplasm or a vascular malformation. Reviewed, Interpreted and Dictated by Kang Lloyd III, MD Transcribed by Nayely Hong Authenticated and [facility]
== END 2024-03-15 23:59 | disposition home or self-care (01) ==
LOC: RAD 13:42
PROVIDERS: PCP Nurse Practitioner Family; Visit Provider Nurse Practitioner Family
DX: M79.89 Other specified soft tissue disorders (principal)
CPT/HCPCS: 76882

== ENCOUNTER 2024-03-16 09:13 | Emergency (ER) | payer BC, SELFPAY ==
[2024-03-16 09:30] VITALS: BP 126/83; PULSE 70; RESP 17; TEMP 36.7; O2SAT 100; BMI 24.8
--- NOTE | 2024-03-16 09:38 | ED_ITS ---
Discharge Plan Disposition Patient Disposition: Home, Self-Care Condition: Good Prescriptions Prescriptions: New ibuprofen [IBU] 800 mg tablet 800 mg PO Q8HP PRN (Reason: Moderate Pain) Qty: 30 0RF No Action desvenlafaxine succinate [Pristiq] 25 mg tablet extended release 24 hr 25 mg PO DAILY Qty: 30 2RF Referrals Follow up/Referrals: Starla Oconnell APRN [Primary Care Provider] - See instructions Activity Restrictions/Add. Instructions Additional Instructions/Restrictions: Go home and rest. No heavy lifting & No twisting. Take the oral medications as directed. The muscle relaxer (cyclobenzaprine--Flexeril) will make you drowsy, so don't drive or operate heavy machinery after taking it. Don't start the oral steroids (medrol dose pack) until tomorrow, since you had the shots in here today. Follow up with your regular doctor. GO TO THE ER FOR ANY WORSENING SYMPTOMS OR CONCERN, ESPECIALLY BOWEL OR BLADDER ISSUES, SADDLE AREA NUMBNESS, FEVER, ETC Clinical Impressions Clinical Impression: Torticollis, Acute pain of right shoulder Instructions Patient Instructions: Ibuprofen Print Language Print Language: Belarusian Discharge ED Provider: Hai Thomas [facility] [place] HPI General Stated complaint: Pain R side of neck and under R shoulder blade Mode of Arrival: Ambulatory Source of Information: Patient Limitations: No Limitations Time Seen by Provider: 03/16/24 09:38 Description of Symptoms (Recalled from Triage Doc. by RN): PATIENT C/O PAIN TO RIGHT NECK THAT RADIATES DOWN TO SHOULDER BLADE X 2 DAYS. NO KNOWN INJURY. HEENT Symptoms (Recalled from RN notes): No Resp Symptoms (Recalled from RN notes): No Skin Symptoms (Recalled from RN notes): No MS Symptoms (Recalled from RN notes): Yes Functional Status (Recalled from RN notes): WNL History of Present Illness Provider Complaint: She states that she has had right sided neck pain for the past 2 days. She denies any injury. She is currently breast feeding. Related Data Previous Rx's ?Medication ?Instructions ?Recorded desvenlafaxine succinate 25 mg 25 mg PO DAILY #30 tabs 02/19/24 tablet,extended release 24 hr (Pristiq) ibuprofen 800 mg tablet (IBU) 800 mg PO Q8HP PRN Moderate Pain 03/16/24 #30 tabs Allergies Allergy/AdvReac Type Severity Reaction Status Date / Time No Known Allergies Allergy Verified 03/04/24 15:11 Worker's Comp Is this a Worker's Comp case?: No [facility] Disclaimer: The information contained in this section may have been updated after the patient was seen, as this information can be updated by other users. Medical History Burning with urination Spontaneous onset of labor Heartburn during Nausea and vomiting in Anxiety disorder affecting , antepartum Generalized anxiety disorder LGSIL on Pap smear of cervix Marijuana use History of nephrolithiasis Depression Anxiety Surgical History No significant past surgical history Family History Other Asthma Cancer Diabetes Hyperlipidemia Hypertension Social History Smoking Status: Never smoker second hand exposure: Yes (her family smokes; her parents do; her fianc? 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 Recent Travel: No sexually active: Yes are you practicing safe sex: Yes caffeine: Yes physical activity: none fredy/shinto: Nondenominational special fredy needs: No working smoke detector in home: Yes fire extinguisher in home: Yes carbon monox detector in home: No firearms in home: Yes firearms unloaded and locked: Yes do you feel safe at home: Yes victim of physical abuse: No victim of emotional abuse: No victim of sexual abuse: No ROS Obtained: Yes All systems reviewed & no additional complaints except as documented Constitutional Constitutional: Denies chills, Denies fever(s) and Denies headache(s) Eyes Eyes: Denies eye discharge ENT Ears, Nose, Mouth, and Throat: Denies dizziness, Denies otalgia, Denies headache(s), Reports neck pain and Denies sore throat Cardiovascular Cardiovascular: Denies chest pain Respiratory Respiratory: Denies shortness of breath, Denies chest congestion, Denies cough, Denies stridor and Denies wheezing Gastrointestinal Gastrointestingal: Denies nausea or vomiting Musculoskeletal Musculoskeletal: Reports as per HPI, Reports back pain and Reports neck pain Integumentary/Breasts Skin/Breast: Denies redness, Denies rash and Denies wounds Neurologic Neurologic: Denies dizziness, Denies headache(s), Denies paresthesias and Reports radicular pain Allergic/Immunologic Allergic/Immunologic: Denies wheezing Physical Exam General General appearance: alert and in no apparent distress Head Head exam: atraumatic, normocephalic and normal inspection Eye Eye exam: Present normal appearance, PERRL and EOMI ENT ENT exam: Present normal exam, normal oropharynx, mucous membranes moist, TM's normal bilaterally and normal external ear exam Neck Neck exam: Present normal inspection, full ROM and trachea midline; Absent meningismus or lymphadenopathy Chest Chest inspection: Present normal inspection and symmetric chest wall rise; Absent tenderness Respiratory Respiratory exam: Present normal lung sounds bilaterally; Absent respiratory distress Cardiovascular Cardiovascular exam: Present regular rate and normal rhythm; Absent JVD Abdominal Exam Abdominal exam: Present soft and normal bowel sounds; Absent distention, tenderness or guarding Extremities Exam Extremities exam: Present normal capillary refill; Absent calf tenderness Expanded Upper Extremity Exam Right: Shoulder exam: Present tenderness; Absent full ROM, swelling, abrasion, laceration, ecchymosis, deformity, crepitus, dislocation, erythema or tenderness over AC joint Arm exam: Present normal inspection and full ROM; Absent tenderness Elbow exam: Present normal inspection and full ROM; Absent tenderness Forearm/Wrist exam: Present normal inspection and full ROM; Absent tenderness Hand exam: Present normal inspection and full ROM; Absent tenderness Neuromotor exam: Normal wrist extension, thumb opposition, thumb IP flexion, thumb adduction and fingers 2-5 abduction Neurosensory exam: Normal radial nerve, ulnar nerve and median nerve Vascular exam: Normal capillary refill, radial pulse and ulnar pulse Back Exam Back exam: Present normal inspection and full ROM; Absent tenderness, CVA tenderness (R) or CVA tenderness (L) Neurological Exam Neurological exam: Present alert, oriented X3, CN II-XII intact, normal gait and reflexes normal; Absent motor sensory deficit Psychiatric Psychiatric exam: Present normal affect and normal mood Skin Skin exam: Present warm, dry, intact and normal color; Absent rash Lymphatic Lymphatic Findings: no adenopathy Medical Decision Making Medical Records Medical records reviewed: No I reviewed the patient's medical records. Screening: Per USPSTF and CDC recommendations, given the prevalence of disease in our region, it is our hospital?s policy to screen for HIV and viral Hepatitis for all patients aged 18 and over and those with ongoing risk factors. Ney Inquiry Pt receiving controlled substance: No Vital Signs: 03/16/24 09:30 Temperature 98.0 F Temperature Source Oral Pulse Rate [Left Brachial] 70 Respiratory Rate 17 Blood Pressure [Left Arm] 126/83 Blood Pressure Mean [Left Arm] 97 Blood Pressure Source [Left Arm] Automatic Cuff Blood Pressure Position [Left Arm] Sitting 02 Sat by Pulse Oximetry 100 Oxygen Delivery Method Room Air
[2024-03-16 10:20] VITALS: BP 126/83; PULSE 70; RESP 17; TEMP 36.7; O2SAT 100
== END 2024-03-16 10:23 | disposition home or self-care (01) ==
PROVIDERS: Emergency Provider Nurse Practitioner Family; PCP Nurse Practitioner Family
DX: M25.511 Pain in right shoulder (principal); M43.6 Torticollis
CPT/HCPCS: 99213; G0381

== ENCOUNTER 2024-03-25 06:27 | Day surgery (SDC) | payer BC, SELFPAY ==
[2024-03-22 13:16] VITALS: BMI 23.3
[2024-03-25 06:50] VITALS: BP 118/75; PULSE 70; RESP 18; TEMP 36.3; O2SAT 97
[2024-03-25] MEDS: BACITRACIN ZINC OINT 30GM TUBE 28 GM TP (07:12)
[2024-03-25] MEDS: LIDOCAINE 1% W/EPI 1:100,000 20ML VIAL 20 ML (07:12)
[2024-03-25 07:42] VITALS: BP 119/68; PULSE 72; RESP 16; TEMP 36.9; O2SAT 100
--- NOTE | 2024-03-25 07:43 | EXP.OP.NOTE ---
Date of procedure: 03/25/24 Pre-op Diagnosis:: Left upper extremity soft tissue mass (1.5 cm) Post-op Diagnosis:: Same Procedure performed:: Excision of 1.5 cm left upper extremity soft tissue mass Surgeon:: Ozzy Fontaine MD Anesthesia: local Estimated blood loss (mL): 5 Operative findings:: Lesion excised in toto Operative note:: After informed consent was obtained the patient was taken to the procedure room. The region around the left upper extremity soft tissue mass was prepped and draped in a sterile fashion. After infiltration with local anesthetic an elliptical incision was made around the lesion. The lesion was sharply excised in toto and passed off for pathologic evaluation. Dissection was taken to the deeper subcutaneous tissue. Thermal cautery was utilized to achieve hemostasis. Skin was then reapproximated with interrupted 5-0 nylon in a mattress fashion. Dressings were applied and the patient was discharged home in stable condition. Condition: stable Disposition: no change Specimens:: Left upper extremity soft tissue mass Complications:: No immediate
== END 2024-03-25 07:47 | disposition home or self-care (01) ==
PROVIDERS: PCP Nurse Practitioner Family; Visit Provider Surgery
PROC: (CPT 24075; principal; 2024-03-25 07:30)
DX: R22.32 Localized swelling, mass and lump, left upper limb (principal)
CPT/HCPCS: 24075

== ENCOUNTER 2024-04-08 13:54 | Outpatient (CLI) | payer BC, SELFPAY ==
--- NOTE | 2024-04-08 13:56 | US_ITS ---
FINAL REPORT TECHNIQUE: Limited sonographic imaging of the left axilla was obtained. CLINICAL HISTORY: ABN EXCISION RESULTS -- LEFT AXILLA FINDINGS: There are multiple left axillary lymph nodes measuring up to 29 mm which may be reactive. There is also a 19 mm, hyperechoic mass in the left axilla which could represent lipoma or other solid mass. IMPRESSION: Multiple left axillary lymph nodes which may be reactive. 19 mm hyperechoic mass in the left axilla which could represent lipoma or other solid mass. Reviewed, Interpreted and Dictated by Kang Lloyd III, MD Transcribed by Katie Quigley Authenticated and [facility]
== END 2024-04-08 23:59 | disposition home or self-care (01) ==
LOC: RAD 13:55
PROVIDERS: PCP Nurse Practitioner Family; Visit Provider Surgery
DX: M79.89 Other specified soft tissue disorders (principal)
CPT/HCPCS: 76642

== ENCOUNTER 2024-04-12 08:11 | Outpatient (CLI) | payer BC, SELFPAY ==
--- NOTE | 2024-04-12 08:21 | US_ITS ---
FINAL REPORT CLINICAL HISTORY: .FNA/CORE RPMI LT AXILLARY NODE--LT FNA HUMERUS AREA-- TIFFANIE TAMAYO FINDINGS: Ultrasound guided left axillary lymph node biopsy. HISTORY: Left axillary lymph node PROCEDURE: After informed consent was obtained and a time-out was performed, the patient was prepped and draped in usual sterile fashion over the left axilla. Utilizing local anesthesia and sterile technique with a 25-gauge needle, access to the the lymph node was obtained. 3 fine needle passes were meat. In addition, a single core biopsy attempt was made which yielded very little tissue and the patient appeared to develop a small hematoma. Further core attempts were not made. The patient received no conscious sedation. The patient tolerated procedure well and left the department in good condition. IMPRESSION: Status post ultrasound guided fine-needle aspiration of a left axillary lymph node without immediate complication.. A single core biopsy attempt was made which yielded very little tissue and the patient developed a small hematoma. Further core biopsy attempts were not made. Ultrasound guided soft tissuebiopsy. HISTORY: . Abnormal soft tissue along the surgical incision site. PROCEDURE: After informed consent was obtained and a time-out was performed, the patient was prepped and draped in usual sterile fashion over the lateral aspect of the humerus Utilizing local anesthesia and sterile technique with a 25-gauge needle, access to the abnormal soft tissue was obtained. 2 fine needle passes were made. The patient received no conscious sedation. The patient tolerated procedure well and left the department in good condition. IMPRESSION: Status post ultrasound guided biopsy of soft tissue abnormality without immediate complication. Films reviewed , interpreted and dictated by Dr. Lloyd Transcribed by Tiffanie Anglin PA-C. Reviewed, Interpreted and Dictated by Kang Lloyd III, MD Transcribed by RONI Patino Authenticated and [facility]
== END 2024-04-12 23:59 | disposition home or self-care (01) ==
LOC: RAD 08:12
PROVIDERS: PCP Nurse Practitioner Family; Visit Provider Surgery
DX: M79.89 Other specified soft tissue disorders (principal)
CPT/HCPCS: 10005; 76942

== ENCOUNTER 2024-07-18 12:42 | Outpatient (CLI) | payer OTHER, SELFPAY ==
--- NOTE | 2024-07-18 12:43 | US_ITS ---
FINAL REPORT CLINICAL HISTORY: lt axilla mass COMPARISON: 04/08/2024 FINDINGS: Limited sonographic images were obtained of the soft tissues in the left axilla at the area of interest. There are normal-appearing lymph nodes. The previously noted hypoechoic lesion in the subcutaneous tissues is no longer evident and could represent resolved area of fat necrosis. There is no evidence of fluid collection. IMPRESSION: No suspicious lesions identified. Reviewed, Interpreted and Dictated by Collins East MD Transcribed by Swati Vides Authenticated and [facility]
== END 2024-07-18 23:59 | disposition home or self-care (01) ==
LOC: RAD 12:43
PROVIDERS: PCP Internal Medicine Adolescent Medicine; Visit Provider Surgery
DX: R22.32 Localized swelling, mass and lump, left upper limb (principal)
CPT/HCPCS: 76642